=== PATIENT | male | born 1960 | race Caucasian/White ===

== ENCOUNTER 2016-11-03 19:19 | Emergency (ER) | payer OTHER | END 2016-11-03 21:11 | disposition home or self-care (01) | DX: S22.32XA Fracture of one rib, left side, initial encounter for closed fracture (principal); W01.198A Fall on same level from slipping, tripping and stumbling with subsequent striking against other object, initial encounter ==

== ENCOUNTER 2016-11-05 02:53 | Outpatient (CLI) | payer OTHER | END 2016-11-05 02:54 | disposition home or self-care (01) | DX: F41.9 Anxiety disorder, unspecified (principal) ==

== ENCOUNTER 2016-11-05 09:57 | Outpatient (CLI) | payer OTHER | END 2016-11-05 09:58 | disposition critical access hospital (66) | DX: F41.0 Panic disorder [episodic paroxysmal anxiety] (principal) | CPT/HCPCS: A0425; A0429 ==

== ENCOUNTER 2016-11-05 10:14 | Emergency (ER) | payer OTHER ==
--- NOTE | 2016-11-05 12:48 | ED Physician Documentation ---
History of Present Illness - Stated complaint Stated Complaint: ANXIETY - Chief complaint Chief Complaint: MHE - History obtained from History obtained from: Patient, EMS - History of Present Illness Timing: Today - Additonal information Additional information: 56 y/o male fell about one week ago and broke a rib. He was drinking at the time and he has since stopped. He is one week out from his last drink. He took some left over vicoden for the pain and he developed hallucinations that he attributed to the medication until it was pointed out that this could happen from alcohol withdrawal and then the patient had the realization. He finally began to eat this morning and had a good hug from his before she left for work and he was relieved and then he began to have a panic attack. He called the ambulance for anxiety. Review of Systems Constitutional: denies: Fever, Chills Eyes: denies: Decreased vision Ears: reports: Loss of hearing. denies: Ear pain Nose: denies: Rhinorrhea / runny nose, Congestion Throat: denies: Sore throat Cardiac: reports: Chest pain / pressure Respiratory: denies: Dyspnea, Cough GI: denies: Vomiting Musculoskeletal: denies: Neck pain, Back pain Neurologic: reports: Other (shakes). denies: Generalized weakness, Focal weakness, Numbness Psychiatric: reports: Hallucinations PD PAST MEDICAL HISTORY - Present Medications Home Medications: Ambulatory Orders Medication Instructions Recorded Confirmed Hydrocodone/Acetaminophen [Vicodin 1 tab PO Q6HR 11/03/16 11/05/16 5-300 mg Tablet] Lorazepam [Ativan] 1 - 2 mg PO Q6HR PRN #20 tablet 11/05/16 - Allergies Allergies/Adverse Reactions: Allergies Allergy/AdvReac Type Severity Reaction Status Date / Time cat dander Allergy Itching Verified 11/03/16 19:29 Penicillins Allergy Rash Verified 11/03/16 19:29 - Social History Does the pt smoke?: Yes Smoking Status: Current every day smoker Does the pt drink ETOH?: Yes ETOH Use: Beer Does the pt have substance abuse?: No PD ED PE NORMAL - Vitals Vital signs reviewed: Yes (tachy and hypertensive ) - General General: Alert and oriented X 3, Well developed/nourished, Other (The patient does have the shakes. ) - HEENT HEENT: Atraumatic, PERRL, EOMI - Neck Neck: Supple, no meningeal sign - Cardiac Cardiac: RRR, No murmur - Respiratory Respiratory: No respiratory distress, Clear bilaterally - Abdomen Abdomen: Soft, Non tender - Back Back: No CVA TTP, No spinal TTP - Derm Derm: Normal color, Warm and dry, No rash - Extremities Extremities: No deformity, No edema - Neuro Neuro: Alert and oriented X 3, No motor deficit, No sensory deficit, Normal speech - Psych Psych: Normal mood, Normal affect Results - Vitals Vitals: Vital Signs - 24 hr 11/05/16 10:15 Temperature 37.3 C Heart Rate 123 H Respiratory 22 Rate Blood Pressure 190/99 H O2 Saturation 95 Oxygen O2 Source Room air PD MEDICAL DECISION MAKING - ED course Complexity details: considered differential, d/w patient ED course: 56 y/o male with acute alcohol withdrawals symptoms is offered IV fluids and refuses as he feels he will be able to hydrate orally. Departure - Departure Disposition: 01 Home, Self Care Clinical Impression: Alcohol withdrawal Qualifiers: Complication of substance-induced condition: with unspecified complication Qualified Code(s): F10.239 - Alcohol dependence with withdrawal, unspecified Condition: Stable Instructions: ED Withdrawal Alcohol Follow-Up: [facility] Moreno [Provider Group] Prescriptions: Lorazepam [Ativan] 1 - 2 mg PO Q6HR PRN #20 tablet PRN Reason: withdrawal symptoms
[2016-11-05] MEDS ORDERED: DEXAMETHASONE 10 MG/ML VIAL PO STA (12:56)
[2016-11-05] MEDS ORDERED: DEXAMETHASONE 10 MG/ML VIAL ONE (12:58)
[2016-11-05] MEDS ORDERED: CHERRY SYRUP 10 ML UDC PO ONE (12:58)
[2016-11-05 13:00] VITALS: BP 174/86
== END 2016-11-05 13:03 | disposition home or self-care (01) ==
LOC: ED 10:14
DX: F10.239 Alcohol dependence with withdrawal, unspecified (principal); F17.200 Nicotine dependence, unspecified, uncomplicated
CPT/HCPCS: 99283; A9270

== ENCOUNTER 2016-11-07 08:09 | Outpatient (CLI) | payer OTHER | END 2016-11-07 08:10 | disposition critical access hospital (66) | LOC: EMS 08:09 | PROVIDERS: ATTEND Surgery | DX: R41.82 Altered mental status, unspecified (principal) | CPT/HCPCS: A0425; A0429 ==

== ENCOUNTER 2016-11-07 08:48 | Inpatient (IN) | payer OTHER ==
--- NOTE | 2016-11-07 09:12 | ED Physician Documentation ---
PD HPI MHE - Stated complaint Stated Complaint: MHE - Chief complaint Chief Complaint: MHE - History obtained from History obtained from: Patient, Family (spouse) - History of Present Illness Primary symptom: Psychosis, Anxiety, Other (shaky and nauseated) Timing - onset: How many days ago (3-4) Contributing factors: Substance abuse - ETOH (had been drinking heavily/ regularly up to 8 days ago, per patient. Was having mild shakiness and nausea for a few days, then having increased anxiety, poor sleep, nausea (but still able to hydrate), and paranoia, shakiness the past 3-4 days worsening. Seen in ED 2 days ago with Rx for Ativan, but did not fill it. Was feeling better with Ativan in the ED. Continues with agitation, shakiness, and worsening paranoia about having detectors placed in his head, and small creatures putting things in his toes.) Similar symptoms before: Has not had sx before (has had sober periods in the past with mild withdrawal but no prior withdrawal psychosis, seizures, nor hospitalization.) Recently seen: Emergency Dept (2 days ago for similar but milder.) Review of Systems Constitutional: denies: Fever, Chills Nose: denies: Rhinorrhea / runny nose, Congestion Throat: denies: Sore throat Cardiac: denies: Chest pain / pressure, Palpitations Respiratory: denies: Dyspnea, Cough GI: reports: Nausea. denies: Abdominal Pain, Vomiting, Diarrhea, Bloody / black stool : denies: Dysuria, Frequency Skin: denies: Rash, Lesions Musculoskeletal: denies: Extremity swelling Neurologic: reports: Generalized weakness, Confused. denies: Focal weakness, Numbness, Seizure, Headache, Head injury Endocrine: denies: Weight loss Immunocompromised: denies: Immunocompromised PD PAST MEDICAL HISTORY - Past Medical History Cardiovascular: None Respiratory: None Neuro: None Endocrine/Autoimmune: None Psych: None - Allergies Allergies/Adverse Reactions: Allergies Allergy/AdvReac Type Severity Reaction Status Date / Time cat dander Allergy Itching Verified 11/07/16 08:52 Penicillins Allergy Rash Verified 11/07/16 08:52 - Social History Does the pt smoke?: Yes Smoking Status: Current every day smoker Does the pt drink ETOH?: Yes Does the pt have substance abuse?: No PD ED PE NORMAL - Vitals Vital signs reviewed: Yes - General General: Alert and oriented X 3, Well developed/nourished - HEENT HEENT: Atraumatic, PERRL, EOMI, Pharynx benign. No: Moist mucous membranes - Neck Neck: Supple, no meningeal sign, No adenopathy - Cardiac Cardiac: No: RRR (mild tachycardic; also hypertensive) - Respiratory Respiratory: Clear bilaterally - Abdomen Abdomen: Soft, Non tender, No organomegaly - Male Male : Deferred - Rectal Rectal: Deferred - Back Back: No CVA TTP - Derm Derm: Normal color, Warm and dry - Extremities Extremities: No edema, No calf tenderness / cord - Neuro Neuro: Alert and oriented X 3, No motor deficit, Normal speech - Psych Psych: No: Normal mood (anxious, very shaky in extremities with worsening on intention. He has fixed delusions of having "detectors placed in his head" and that creatures or such had "put things in my toes and burned them". I asked about listening to his chest and he asked me if I heard any machines or unusual sounds in the chest and he thinks there were things put in his chest. He denies hearing voices nor visual hallucinations per se. However he is asking for MRI to find the detectors in his head and if I can remove the things from his chest. Increasing shakiness while getting initial labs, despite IV Ativan. ) Results - Vitals Vitals: Vital Signs - 24 hr 11/07/16 11/07/16 11/07/16 08:48 11:19 13:36 Temperature 37.4 C 36.6 C Heart Rate 94 80 Respiratory 18 18 Rate Blood Pressure 187/88 H 137/76 H O2 Saturation 100 96 98 Oxygen O2 Source Room air - Labs Labs: Laboratory Tests 11/07/16 11/07/16 11/07/16 09:55 09:55 11:30 WBC 7.6 RBC 3.99 L Hgb 13.7 L Hct 38.5 L MCV 96.5 H MCH 34.3 H MCHC 35.5 RDW 14.0 Plt Count 208 MPV 7.9 Neut # 4.2 Lymph # 2.0 [place] # 1.2 H Eos # 0.1 Baso # 0.1 Absolute Nucleated RBC 0.00 Nucleated RBCs 0.0 Sodium 136 Potassium 3.3 L Chloride 101 Carbon Dioxide 24 Anion Gap 11.0 BUN 11 Creatinine 0.8 Estimated GFR (MDRD) 100 Glucose 104 H Calcium 9.3 Magnesium 1.9 Total Bilirubin 0.8 AST 36 ALT 32 Alkaline Phosphatase 62 Total Protein 7.8 Albumin 4.5 Globulin 3.3 Albumin/Globulin Ratio 1.4 Lipase 45 Urine Opiates Screen NEGATIVE Ur Oxycodone Screen NEGATIVE Urine Methadone Screen NEGATIVE Ur Propoxyphene Screen NEGATIVE Ur Barbiturates Screen NEGATIVE Ur Tricyclics Screen NEGATIVE Ur Phencyclidine Scrn NEGATIVE Ur Amphetamine Screen NEGATIVE U Methamphetamines Scrn NEGATIVE U Benzodiazepines Scrn NEGATIVE Urine Cocaine Screen NEGATIVE U Cannabinoids Screen NEGATIVE Ethyl Alcohol < 5.0 - Rads (name of study) head CT Radiology: Prelim report reviewed (no acute process) PD MEDICAL DECISION MAKING - ED course Complexity details: re-evaluated patient (He has withdrawal with shakiness, nausea, hypertension, and some confusion, and also clear delusions. This seems to be complicated withdrawal. Not much improved with IV fluids and Ativan. Given dose Zyprexa as well. Continues with shakiness and delusions, and took few more doses of Ativan for improvement, though mainly it was sedation and not really clearing of the delusions. Much less shaky for now. However, I do not see his being treatable with PO medications at this time. Will have SW look at detox facility, though may be too sick for that and would require hospitalization for initial treatment. ), considered differential, d/w patient Departure - Departure Clinical Impression: Alcohol withdrawal delirium, acute, mixed level of activity, Paranoia Condition: Stable Record reviewed to determine appropriate education?: Yes
[2016-11-07] MEDS ORDERED: LORazepam 2 MG/ML SYRINGE IVP STA ×5 (09:44→12:32)
[2016-11-07] MEDS ORDERED: OLANZapine ODT 5 MG TABLET TL ONE ×2 (09:45→09:48)
[2016-11-07] MEDS ORDERED: LORazepam 2 MG/ML SYRINGE ONE ×5 (09:47→12:33)
[2016-11-07 10:14] LABS: BASOPHILS # (AUTO) 0.1 10^3/uL (0.0-0.1); BASOPHILS % (AUTO) 1.1 %; EOSINOPHILS # (AUTO) 0.1 10^3/uL (0.0-0.7); EOSINOPHILS % (AUTO) 1.7 %; HCT - HEMATOCRIT 38.5 % (42.0-52.0); HGB - HEMOGLOBIN 13.7 g/dL (14.0-18.0); MEAN CORPUSCULAR HEMOGLOBIN 34.3 pg (27.0-31.0); MEAN CORPUSCULAR HGB CONC 35.5 g/dL (32.0-36.0); MEAN CORPUSCULAR VOLUME 96.5 fL (80.0-94.0); MEAN PLATELET VOLUME 7.9 fL (7.4-11.4); MONOCYTES # (AUTO) 1.2 10^3/uL (0.0-1.0); MONOCYTES % (AUTO) 15.3 %; NEUTROPHILS # (AUTO) 4.2 10^3/uL (1.5-6.6); NEUTROPHILS % (AUTO) 55.9 %; RED BLOOD COUNT 3.99 10^6/uL (4.70-6.10); UNCORRECTED WHITE BLOOD COUNT 7.6 x10^3/uL; WHITE BLOOD COUNT 7.6 x10^3/uL (4.8-10.8)
[2016-11-07 10:18] LABS: ALBUMIN/GLOBULIN RATIO 1.4 (1.0-2.2); BILIRUBIN,TOTAL 0.8 mg/dL (0.2-1.0); BUN - BLOOD UREA NITROGEN 11 mg/dL (6-20); CALCIUM 9.3 mg/dL (8.5-10.3); CARBON DIOXIDE - CO2 24 mmol/L (21-32); CHLORIDE 101 mmol/L (101-111); CREATININE 0.8 mg/dL (0.6-1.2); GFR - MDRD 100 (>89); GLUCOSE 104 mg/dL (70-100); LIPASE 45 U/L (22-51); MAGNESIUM 1.9 mg/dL (1.7-2.8); POTASSIUM 3.3 mmol/L (3.5-5.0); SODIUM 136 mmol/L (135-145); TOTAL PROTEIN 7.8 g/dL (6.7-8.2)
[2016-11-07] MEDS ORDERED: KETOROLAC 30 MG/ML VIAL ONE (10:42)
[2016-11-07] MEDS ORDERED: DOCUSATE SODIUM 100 MG CAPSULE PO ONE (10:42)
[2016-11-07] MEDS ORDERED: SODIUM CHLORIDE 0.9% 1,000 ML IV ONE (10:51)
[2016-11-07] MEDS ORDERED: MAGNESIUM SULFATE 2 GRAM 50 ML IV ONE ×2 (11:30→11:48)
--- NOTE | 2016-11-07 13:36 | CT Preliminary Report ---
Exam: CT Head W/O IMPRESSION: 1. Brain parenchyma within normal limits. No mass or hemorrhage. 2. Left frontal and to a lesser degree left ethmoid and maxillary chronic sinusitis. [facility] SITE ID: [id number]
[2016-11-07] MEDS ORDERED: diazePAM INJ 5 MG/ML SYRINGE IVP STA ×2 (13:37→17:46)
--- NOTE | 2016-11-07 13:39 | CT Report ---
EXAM: CT HEAD EXAM DATE: 11/07/2016 01:10 PM. CLINICAL HISTORY: Confusion and paranoia. COMPARISON: None. TECHNIQUE: Multiaxial CT images were obtained from the foramen magnum to the vertex. IV contrast: Non e. Reformats: Coronal. In accordance with CT protocol optimization, one or more of the following dose reduction techniques w ere utilized for this exam: automated exposure control, adjustment of mA and/or KV based on patient s ize, or use of iterative reconstructive technique. FINDINGS: Parenchyma: No intraparenchymal hemorrhage. No evidence of mass, midline shift, or CT findings of inf arction. Barnett-white differentiation is distinct. Extraaxial Spaces: Normal for age. No subdural or epidural collections identified. Ventricles: Normal in size and position. Sinuses: The left frontal sinus is nearly completely opacified. Some mucosal thickening also present in the left ethmoid air cells. Mild mucosal thickening about the inferior left maxillary sinus also p resent. Bones: No evidence of fracture or calvarial defect. Other: None. IMPRESSION: 1. Brain parenchyma within normal limits. No mass or hemorrhage. 2. Left frontal and to a lesser degree left ethmoid and maxillary chronic sinusitis. [facility] Referring Provider Line: [phone] SITE ID: [id number]
[2016-11-07] MEDS ORDERED: ALBUTEROL NEB 2.5 MG/3 ML INH PRN (17:27)
[2016-11-07] MEDS ORDERED: ONDANSETRON 4 MG/2 ML VIAL IVP PRN (17:27)
[2016-11-07] MEDS ORDERED: SODIUM CHLORIDE FLUSH 0.9% 10 ML SYRINGE IVP PRN (17:27)
[2016-11-07] MEDS ORDERED: diazePAM INJ 5 MG/ML SYRINGE ONE (17:49)
[2016-11-07] MEDS: LORazepam 2 MG/ML SYRINGE IVP PRN ×4 (18:52→20:50)
--- NOTE | 2016-11-07 19:06 | HISTORY & PHYSICAL EXAMINATION ---
Chief Complaint - Chief Complaint Chief Complaint: tremor and hallucinations History of Present Illness - Admitted From Admitted From:: [facility] room - History Obtained From Records Reviewed: minimal ER records are available History obtained from: and stepson,, with minimal history from patient Exam Limitations: active alcohol withdrawal - History of Present Illness HPI Comment/Other: this 56-year-old man has been using both alcohol and tobacco since his 20s, according to his . She reports that he drinks up to acase of beer per day.. He has stopped in the past for up to a week. Recently,, she asked him to cut down on his drinking, as they have company coming soon.sshe believes he stopped drinking completely 8 days ago..aabout 4 days ago, he fell and struck his rib cage on a desk, and fractured the left seventh rib.. He tried to take some old Vicodin, but had a bad reaction. She says he then tried over- the-counter ibuprofen and an [id number]-[id number] sleepy. He was quite confused the next day, so they stopped his medications. Since then, he has become progressively more confused. He seems to be hallucinating about people on a different plane who are trying to kill him,, and also about dangerous people and animals in their yard. ER evaluation is suggestive of active alcohol withdrawal. because he remained agitated and delusional in the emergency room, he could not be transferred to a psychiatric facility for rehabilitation. He is now admitted for management of active DTs, and is admitted to the ICU for close monitoring. He is very confused and is actively trying to pull out lines and climb out of bed. He represents a danger to himself, and perhaps others. the patient cannot really give an accurate history. his says he has not complained fever or chills, headaches or dizziness, and no eye or ear symptoms , sore throat.. He does have a chronic cough which is unchanged.. He is having some pain with deep breathing since he fell and broke his rib. He otherwise denies chest pain or palpitations. He has not reported abdominal pain, , nausea or vomiting, diarrhea or constipation. He does not report dysuria. She does note that he is ordinarily quite sedentary. he does not have a primary care pphysician,, and has probably not seen a doctor since he retired from the ,, about 20 years ago. Past medical history: Previous hypertension Alcohol abuse Tobacco abuse current medications: None. He did recently take ibuprofen, and heqw-osp-zhslszn sleep meds, and an old Vicodin, several days ago. Allergies: Penicillin, cats. Next Social history: The patient is retired from the [employer] He lives with his . He has a stepson in [place]. He drinks approximately one case of , and smokes about 2 packs of cigarettes per day, since the age of 14. He does not use drugs. Family history: His mother has COPD. His sister of leukemia. Other family history is unknown. History - Past Medical History Cardiovascular: reports: Hypertension Respiratory: reports: None Neuro: reports: None Endocrine/Autoimmune: reports: None GI: reports: None : reports: None HEENT: reports: Chronic vision loss, Chronic hearing loss Psych: reports: None Musculoskeletal: reports: None Derm: reports: None MRSA Hx?: No Meds/Allgy - Allergies Allergies/Adverse Reactions: Allergies Allergy/AdvReac Type Severity Reaction Status Date / Time cat dander Allergy Itching Verified 11/07/16 08:52 Penicillins Allergy Rash Verified 11/07/16 08:52 Exam - Vital Signs Reviewed Vital Signs: Yes Vital Signs: Vital Signs x48h Temp Pulse Resp BP Pulse Ox 11/07/16 18:28 108 H 20 151/118 H 96 11/07/16 18:17 37.2 C 106 H 26 H 142/88 H 96 on exam, he appears older than his stated age.. He is seen in the ICU, and has wrist restraints on. He is very fidgety. He repeatedly asks for a knife to cut his restraints. Head: Normocephalic, atraumatic. Ears: TMs are clear. Moderate cerumen is noted in the right ear canal. Eyes: PERRLA, EOMI, anicteric. Normal conjunctiva. Pharynx: Is clear. Teeth are in fair condition. Neck: Appears supple, without lymphadenopathy,, JVD, thyromegaly, bruits. cardiac exam:chest regular rate and rhythm, with normal S1 and S2,, without murmurs,, rubs, gallops. Lungs: Clear to auscultation, without rales, rhonchi, wheezes Abdomen: Soft and nontender, without obvious masses. No regarding or rebound.. Active bowel sounds. Extremities: Cyanosis,, clubbing, edema. Pulses intact. Neurologic: The patient is awake and alert,, but clearly confused. He could not stay the day, month,, year, or president . he did recall his 's name and how long they have been . he is trying to get out of restraints, but does not appear violent or especially agitated. Cranial nerves are grossly intact. Motor strength is intact and symmetric throughout. Cerebellar: Patient is quite tremulous. Prqznn-mn-pbsxiq exam could not be performed due to restraints. Conclusion/Plan - Lab Results Fish Bones: 11/07/16 09:55 11/07/16 09:55 Other Lab Results: urine tox screen: Is negative. Alcohol level is less than 5.0next Head CT: Shows normal brain parenchyma. He does have left frontal and left ethmoid and maxillary chronic sinusitis Issues/Core Measures - Anticipated LOS Anticipated Stay Length: 2 or more midnights - Issues Hospital Issues and Management Plan: #1.delirium tremens,, related to alcohol withdrawal. -Patient is actively hallucinating. He is hypertensive, and is certainly at risk for harming due to his confusion. He is at risk for seizures. He has been admitted to the ICU for close observation. Monitor ciwa scale,, when necessary Ativan. Telemetry. Soft wrist restraints,, regarding keeping lines in place and keeping him from falling out of bed. Social work consult. Consideration of inpatient rehabilitation. It was discussed with the patient's family that he may need further psychiatric evaluation, if his symptoms do not improve. -IV fluids, banana bag with vitamins, followup labs.. #2. CODE STATUS: full code. #3. DVT prophylaxis: Subcutaneous heparin. #4. History of hypertension. Untreated. -Monitor. Consider treatment after withdrawal is controlled. Add clonidine if needed. #5. Tobacco abuse. -Nicoderm. Tobacco cessation counseling. #6. Left seventh rib fracture. Pain meds when necessary. cchest wrap when necessary. #7. Hypokalemia. Replace. -Monitor magnesium also. #8. Anemia, macrocytic. Likely due to the effects of alcohol on his bone marrow. -Nutrition consult. this visit to took approximately 65 minutes,, to review records,, test results, interview the patient and his family,, examine him,, write orders
[2016-11-07] MEDS: D5.45NS W/20 MEQ KCL 1,000 ML IV SCH (19:51)
[2016-11-07] MEDS ORDERED: cloNIDine 0.1 MG TABLET PO PRN (19:52)
[2016-11-07] MEDS ORDERED: ACETAMINOPHEN 500 MG TABLET PO PRN (19:53)
[2016-11-07] MEDS ORDERED: POTASSIUM CHLORIDE INJ 40 MEQ in SODIUM CHLORIDE 0.9% 480 ML IV ONE (19:54)
[2016-11-07] MEDS: HEPARIN 5,000 UNIT/ML VIAL SUBQ SCH (20:32)
[2016-11-07] MEDS: SODIUM CHLORIDE FLUSH 0.9% 10 ML SYRINGE IVP SCH (22:10)
[2016-11-08] MEDS: LORazepam 2 MG/ML SYRINGE IVP PRN ×17 (03:20→17:53)
[2016-11-08 05:02] LABS: BASOPHILS % (AUTO) 0.8 %; EOSINOPHILS # (AUTO) 0.2 10^3/uL (0.0-0.7); EOSINOPHILS % (AUTO) 3.8 %; HCT - HEMATOCRIT 38.3 % (42.0-52.0); LYMPHOCYTES % (AUTO) 35.4 %; MEAN CORPUSCULAR HEMOGLOBIN 33.4 pg (27.0-31.0); MEAN CORPUSCULAR HGB CONC 33.9 g/dL (32.0-36.0); MEAN CORPUSCULAR VOLUME 98.7 fL (80.0-94.0); MEAN PLATELET VOLUME 7.9 fL (7.4-11.4); MONOCYTES # (AUTO) 0.8 10^3/uL (0.0-1.0); MONOCYTES % (AUTO) 13.6 %; NEUTROPHILS # (AUTO) 2.6 10^3/uL (1.5-6.6); NEUTROPHILS % (AUTO) 46.4 %; RED BLOOD COUNT 3.88 10^6/uL (4.70-6.10); RED CELL DISTRIBUTION WIDTH 14.2 % (12.0-15.0); UNCORRECTED WHITE BLOOD COUNT 5.7 x10^3/uL; WHITE BLOOD COUNT 5.7 x10^3/uL (4.8-10.8)
[2016-11-08 05:15] LABS: INR 1.1 (0.8-1.2); PT - PROTHROMBIN TIME 12.7 secs (9.9-12.6)
[2016-11-08 05:16] LABS: ALBUMIN/GLOBULIN RATIO 1.2 (1.0-2.2); BILIRUBIN,TOTAL 0.8 mg/dL (0.2-1.0); CALCIUM 8.4 mg/dL (8.5-10.3); CREATININE 0.6 mg/dL (0.6-1.2); MAGNESIUM 2.2 mg/dL (1.7-2.8); PHOSPHORUS 3.3 mg/dL (2.5-4.6); POTASSIUM 3.6 mmol/L (3.5-5.0); TOTAL PROTEIN 6.2 g/dL (6.7-8.2)
[2016-11-08] MEDS: D5.45NS W/20 MEQ KCL 1,000 ML IV SCH ×2 (05:46→20:36)
[2016-11-08] MEDS: PANTOPRAZOLE 40 MG VIAL IVP SCH (06:18)
[2016-11-08] MEDS: SODIUM CHLORIDE FLUSH 0.9% 10 ML SYRINGE IVP SCH ×3 (06:18→22:08)
[2016-11-08] MEDS: NICOTINE 14 MG PATCH TOP SCH (09:19)
[2016-11-08] MEDS: HEPARIN 5,000 UNIT/ML VIAL SUBQ SCH ×2 (09:51→20:36)
[2016-11-08] MEDS: MULTIVITAMIN 10 ML, THIAMINE INJ 100 MG, FOLIC ACID INJ 1 MG in SODIUM CHLORIDE 0.9% 1,... IV SCH (10:15)
[2016-11-08] MEDS: PRENATAL VITAMIN TABLET PO SCH (10:16)
[2016-11-08] MEDS: THIAMINE 100 MG TABLET PO SCH (10:16)
--- NOTE | 2016-11-08 11:57 | PROVIDER PROGRESS NOTE ---
Assessment/Plan - Problem List (1) Alcohol withdrawal delirium, acute, mixed level of activity Assessment/Plan: Sherman is still very confused and very tremulous. He is afebrile and not tachycardic He needs continued close monitoring and meds. Will see how he is doing and decide if improved enough to go to MED Surg - Current Meds Current Meds: Current Medications Generic Name Dose Route Start Last Admin Trade Name Freq PRN Reason Stop Dose Admin Heparin Sodium (Porcine) 5,000 unit 11/07/16 21:00 11/08/16 09:51 SUBQ 5,000 unit BID JAVIER Administration Potassium Chloride/Dextrose/Sod Cl 1,000 mls @ 100 mls/hr 11/07/16 18:00 05:46 D5.45ns W/20 Meq Kcl IV 100 mls/hr .Q10H JAVIER Administration Multivitamins 10 ml/ Thiamine 1,011.2 mls @ 100 mls/hr 11/08/16 09:00 11/08/16 10:15 HCl 100 mg/ Folic Acid 1 mg/ IV 100 mls/hr Sodium Chloride DAILY JAVIER Administration Lorazepam 2 mg 11/07/16 17:36 11/08/16 11:33 Ativan Inj IVP 2 mg Q30M PRN Administration CIWA>8 Protocol Nicotine 1 patch 11/08/16 09:00 11/08/16 09:19 Nicoderm TOP 1 patch DAILY JAVIER Administration Pantoprazole Sodium 40 mg 11/08/16 07:00 11/08/16 06:18 Protonix IVP 40 mg QDAC JAVIER Administration Multivit/Folic Acid/Iron 1 tab 11/08/16 08:00 11/08/16 10:16 Trinatal Rx 1 PO Not Given DAILYWM JAVIER Sodium Chloride 10 ml 11/07/16 22:00 11/08/16 06:18 Normal Saline Flush 0.9% IVP 10 ml Q8HR JAVIER Administration Thiamine HCl 100 mg 11/08/16 09:00 11/08/16 10:16 Vitamin B-1 PO Not Given DAILY JAVIER - Lab Result Fish Bone Diagrams: 11/08/16 04:45 11/08/16 04:45 Subjective - Subjective Patient Reports: Other (He appears anxious and sullen not answering simple questions and appears to be glaring.) Objective Vital Signs: Vital Signs - 24 hr 11/07/16 11/07/16 11/07/16 18:17 18:28 19:00 Temperature 37.2 C Heart Rate Heart Rate [ 106 H 108 H 99 Monitoring electrodes] Respiratory 26 H 20 21 Rate Blood Pressure 142/88 H 151/118 H 122/103 H [Right Brachial artery] O2 Saturation 96 96 99 11/07/16 11/07/16 11/07/16 19:43 21:00 22:00 Temperature 36.5 C Heart Rate Heart Rate [ 112 H 89 64 Monitoring electrodes] Respiratory 19 15 18 Rate Blood Pressure 143/57 H 134/70 H 115/56 L [Right Brachial artery] O2 Saturation 96 99 11/07/16 11/08/16 11/08/16 23:00 00:00 01:00 Temperature 36.8 C Heart Rate Heart Rate [ 75 70 67 Monitoring electrodes] Respiratory 17 13 14 Rate Blood Pressure 148/64 H 130/74 117/73 [Right Brachial artery] O2 Saturation 95 94 93 11/08/16 11/08/16 11/08/16 02:00 03:00 04:00 Temperature 36.9 C Heart Rate Heart Rate [ 65 64 69 Monitoring electrodes] Respiratory 14 15 16 Rate Blood Pressure 129/75 114/69 124/65 [Right Brachial artery] O2 Saturation 93 99 93 11/08/16 11/08/16 11/08/16 05:00 05:50 06:57 Temperature Heart Rate Heart Rate [ 117 H 78 73 Monitoring electrodes] Respiratory 23 16 14 Rate Blood Pressure 143/90 H 157/79 H 142/68 H [Right Brachial artery] O2 Saturation 93 96 11/08/16 11/08/16 11/08/16 07:49 08:46 09:35 Temperature 36.4 C L Heart Rate Heart Rate [ 63 61 102 H Monitoring electrodes] Respiratory 13 20 21 Rate Blood Pressure 142/77 H 124/86 H 124/96 H [Right Brachial artery] O2 Saturation 92 98 97 11/08/16 11/08/16 10:45 11:00 Temperature 36.4 C L Heart Rate 85 Heart Rate [ 73 Monitoring electrodes] Respiratory 21 16 Rate Blood Pressure 163/83 H [Right Brachial artery] O2 Saturation 95 Oxygen O2 Source Room air I&O (Last 24 Hrs): Intake and Output Totals x24h 11/06/16 11/07/16 11/08/16 23:59 23:59 23:59 Intake Total 473 1490 Output Total 0 450 Balance 473 1040 General: Alert HEENT: PERRLA, EOMI Neck: No JVD, No thyromegaly Neuro: Alert, Disoriented, Non Focal Cardiovascular: Regular rate, No murmurs Respiratory: No respiratory distress, Breath sounds nml Abdomen: Normal bowel sounds, Soft Extremities: No cyanosis, No edema Skin: No rashes, No breakdown - Results Results: Laboratory Results WBC 5.7 x10^3/uL (4.8-10.8) 11/08/16 04:45 RBC 3.88 10^6/uL (4.70-6.10) L 11/08/16 04:45 Hgb 13.0 g/dL (14.0-18.0) L 11/08/16 04:45 Hct 38.3 % (42.0-52.0) L 11/08/16 04:45 MCV 98.7 fL (80.0-94.0) H 11/08/16 04:45 MCH 33.4 pg (27.0-31.0) H 11/08/16 04:45 MCHC 33.9 g/dL (32.0-36.0) 11/08/16 04:45 RDW 14.2 % (12.0-15.0) 11/08/16 04:45 Plt Count 212 10^3/uL (130-450) 11/08/16 04:45 MPV 7.9 fL (7.4-11.4) 11/08/16 04:45 Neut # 2.6 10^3/uL (1.5-6.6) 11/08/16 04:45 Lymph # 2.0 10^3/uL (1.5-3.5) 11/08/16 04:45 [place] # 0.8 10^3/uL (0.0-1.0) 11/08/16 04:45 Eos # 0.2 10^3/uL (0.0-0.7) 11/08/16 04:45 Baso # 0.0 10^3/uL (0.0-0.1) 11/08/16 04:45 Absolute Nucleated RBC 0.00 x10^3/uL 11/08/16 04:45 Nucleated RBCs 0.0 /100WBC 11/08/16 04:45 PT 12.7 secs (9.9-12.6) H 11/08/16 04:45 INR 1.1 (0.8-1.2) 11/08/16 04:45 Sodium 137 mmol/L (135-145) 11/08/16 04:45 Potassium 3.6 mmol/L (3.5-5.0) 11/08/16 04:45 Chloride 105 mmol/L (101-111) 11/08/16 04:45 Carbon Dioxide 24 mmol/L (21-32) 11/08/16 04:45 Anion Gap 8.0 (6-13) 11/08/16 04:45 BUN 7 mg/dL (6-20) 11/08/16 04:45 Creatinine 0.6 mg/dL (0.6-1.2) 11/08/16 04:45 Estimated GFR (MDRD) 140 (>89) 11/08/16 04:45 Glucose 91 mg/dL (70-100) 11/08/16 04:45 Calcium 8.4 mg/dL (8.5-10.3) L 11/08/16 04:45 Phosphorus 3.3 mg/dL (2.5-4.6) 11/08/16 04:45 Magnesium 2.2 mg/dL (1.7-2.8) 11/08/16 04:45 Total Bilirubin 0.8 mg/dL (0.2-1.0) 11/08/16 04:45 AST 28 IU/L (10-42) 11/08/16 04:45 ALT 24 IU/L (10-60) 11/08/16 04:45 Alkaline Phosphatase 47 IU/L (42-121) 11/08/16 04:45 Total Protein 6.2 g/dL (6.7-8.2) L 11/08/16 04:45 Albumin 3.4 g/dL (3.2-5.5) 11/08/16 04:45 Globulin 2.8 g/dL (2.1-4.2) 11/08/16 04:45 Albumin/Globulin Ratio 1.2 (1.0-2.2) 11/08/16 04:45 Lipase 45 U/L (22-51) 11/07/16 09:55 Urine Opiates Screen NEGATIVE (NEGATIVE) 11/07/16 11:30 Ur Oxycodone Screen NEGATIVE (NEGATIVE) 11/07/16 11:30 Urine Methadone Screen NEGATIVE (NEGATIVE) 11/07/16 11:30 Ur Propoxyphene Screen NEGATIVE (NEGATIVE) 11/07/16 11:30 Ur Barbiturates Screen NEGATIVE (NEGATIVE) 11/07/16 11:30 Ur Tricyclics Screen NEGATIVE (NEGATIVE) 11/07/16 11:30 Ur Phencyclidine Scrn NEGATIVE (NEGATIVE) 11/07/16 11:30 Ur Amphetamine Screen NEGATIVE (NEGATIVE) 11/07/16 11:30 U Methamphetamines Scrn NEGATIVE (NEGATIVE) 11/07/16 11:30 U Benzodiazepines Scrn NEGATIVE (NEGATIVE) 11/07/16 11:30 Urine Cocaine Screen NEGATIVE (NEGATIVE) 11/07/16 11:30 U Cannabinoids Screen NEGATIVE (NEGATIVE) 11/07/16 11:30 Ethyl Alcohol < 5.0 mg/dL 11/07/16 09:55
[2016-11-08] MEDS: LORazepam 100MG/100ML 100 ML IV SCH ×2 (15:29→22:53)
[2016-11-08] MEDS ORDERED: LORazepam 2 MG/ML SYRINGE IVP ONE (17:15)
[2016-11-08] MEDS ORDERED: LORazepam 2 MG/ML SYRINGE IVP PRN (18:00)
[2016-11-09] MEDS: D5.45NS W/20 MEQ KCL 1,000 ML IV SCH ×2 (01:22→06:48)
[2016-11-09] MEDS: LORazepam 100MG/100ML 100 ML IV SCH ×4 (04:47→18:02)
[2016-11-09 05:26] LABS: BASOPHILS # (AUTO) 0.1 10^3/uL (0.0-0.1); BASOPHILS % (AUTO) 1.1 %; EOSINOPHILS # (AUTO) 0.2 10^3/uL (0.0-0.7); EOSINOPHILS % (AUTO) 3.4 %; HGB - HEMOGLOBIN 12.5 g/dL (14.0-18.0); LYMPHOCYTES % (AUTO) 38.7 %; MEAN CORPUSCULAR HEMOGLOBIN 33.1 pg (27.0-31.0); MEAN CORPUSCULAR HGB CONC 33.7 g/dL (32.0-36.0); MONOCYTES # (AUTO) 0.8 10^3/uL (0.0-1.0); MONOCYTES % (AUTO) 14.7 %; NEUTROPHILS # (AUTO) 2.2 10^3/uL (1.5-6.6); NEUTROPHILS % (AUTO) 42.1 %; NUCLEATED RED BLOOD CELLS AUTO 0.1 /100WBC; RED BLOOD COUNT 3.77 10^6/uL (4.70-6.10); UNCORRECTED WHITE BLOOD COUNT 5.3 x10^3/uL; WHITE BLOOD COUNT 5.3 x10^3/uL (4.8-10.8)
[2016-11-09] MEDS: SODIUM CHLORIDE FLUSH 0.9% 10 ML SYRINGE IVP SCH ×3 (06:25→22:00)
[2016-11-09] MEDS: PANTOPRAZOLE 40 MG VIAL IVP SCH (06:25)
[2016-11-09 06:34] LABS: ALBUMIN/GLOBULIN RATIO 1.5 (1.0-2.2); BILIRUBIN,TOTAL 0.8 mg/dL (0.2-1.0); BUN - BLOOD UREA NITROGEN < 5 mg/dL (6-20); CALCIUM 8.4 mg/dL (8.5-10.3); CARBON DIOXIDE - CO2 24 mmol/L (21-32); CHLORIDE 109 mmol/L (101-111); CREATININE 0.5 mg/dL (0.6-1.2); GFR - MDRD 173 (>89); GLUCOSE 117 mg/dL (70-100); POTASSIUM 3.4 mmol/L (3.5-5.0); SODIUM 139 mmol/L (135-145); TOTAL PROTEIN 5.9 g/dL (6.7-8.2)
[2016-11-09] MEDS ORDERED: POTASSIUM CHLORIDE 20 MEQ/15 ML UDC PO ONE (07:58)
[2016-11-09] MEDS: HEPARIN 5,000 UNIT/ML VIAL SUBQ SCH ×2 (08:27→21:29)
[2016-11-09] MEDS: NICOTINE 14 MG PATCH TOP SCH (08:27)
[2016-11-09] MEDS: THIAMINE 100 MG TABLET PO SCH (08:56)
[2016-11-09] MEDS: PRENATAL VITAMIN TABLET PO SCH (08:56)
[2016-11-09] MEDS: MULTIVITAMIN 10 ML, THIAMINE INJ 100 MG, FOLIC ACID INJ 1 MG in SODIUM CHLORIDE 0.9% 1,... IV SCH (08:56)
[2016-11-09] MEDS: POTASSIUM CHLOR 10 MEQ/100 ML 100 ML IV SCH ×4 (09:20→12:37)
[2016-11-10] MEDS: LORazepam 100MG/100ML 100 ML IV SCH ×3 (00:57→14:13)
[2016-11-10 05:14] LABS: BASOPHILS # (AUTO) 0.1 10^3/uL (0.0-0.1); BASOPHILS % (AUTO) 1.3 %; EOSINOPHILS # (AUTO) 0.1 10^3/uL (0.0-0.7); EOSINOPHILS % (AUTO) 2.6 %; HCT - HEMATOCRIT 39.1 % (42.0-52.0); HGB - HEMOGLOBIN 13.1 g/dL (14.0-18.0); LYMPHOCYTES # (AUTO) 1.5 10^3/uL (1.5-3.5); LYMPHOCYTES % (AUTO) 26.5 %; MEAN CORPUSCULAR HEMOGLOBIN 33.4 pg (27.0-31.0); MEAN CORPUSCULAR HGB CONC 33.5 g/dL (32.0-36.0); MEAN CORPUSCULAR VOLUME 99.7 fL (80.0-94.0); MEAN PLATELET VOLUME 8.2 fL (7.4-11.4); MONOCYTES # (AUTO) 0.8 10^3/uL (0.0-1.0); MONOCYTES % (AUTO) 14.3 %; NEUTROPHILS # (AUTO) 3.1 10^3/uL (1.5-6.6); NEUTROPHILS % (AUTO) 55.3 %; RED BLOOD COUNT 3.92 10^6/uL (4.70-6.10); UNCORRECTED WHITE BLOOD COUNT 5.7 x10^3/uL; WHITE BLOOD COUNT 5.7 x10^3/uL (4.8-10.8)
[2016-11-10 05:26] LABS: ALBUMIN/GLOBULIN RATIO 1.3 (1.0-2.2); BILIRUBIN,TOTAL 0.6 mg/dL (0.2-1.0); BUN - BLOOD UREA NITROGEN < 5 mg/dL (6-20); CALCIUM 8.7 mg/dL (8.5-10.3); CARBON DIOXIDE - CO2 24 mmol/L (21-32); CHLORIDE 110 mmol/L (101-111); CREATININE 0.5 mg/dL (0.6-1.2); GFR - MDRD 173 (>89); GLUCOSE 97 mg/dL (70-100); POTASSIUM 3.8 mmol/L (3.5-5.0); SODIUM 142 mmol/L (135-145)
[2016-11-10] MEDS: PANTOPRAZOLE 40 MG VIAL IVP SCH (06:53)
[2016-11-10] MEDS: D5.45NS W/20 MEQ KCL 1,000 ML IV SCH ×4 (06:53→20:52)
[2016-11-10] MEDS: SODIUM CHLORIDE FLUSH 0.9% 10 ML SYRINGE IVP SCH ×3 (06:55→21:30)
[2016-11-10] MEDS: NICOTINE 14 MG PATCH TOP SCH (08:46)
[2016-11-10] MEDS: HEPARIN 5,000 UNIT/ML VIAL SUBQ SCH ×2 (08:47→20:54)
[2016-11-10] MEDS: PRENATAL VITAMIN TABLET PO SCH (08:55)
[2016-11-10] MEDS: THIAMINE 100 MG TABLET PO SCH (08:56)
[2016-11-10] MEDS: MULTIVITAMIN 10 ML, THIAMINE INJ 100 MG, FOLIC ACID INJ 1 MG in SODIUM CHLORIDE 0.9% 1,... IV SCH (09:35)
--- NOTE | 2016-11-10 11:08 | PROVIDER PROGRESS NOTE ---
Assessment/Plan - Problem List (1) Alcohol withdrawal delirium, acute, mixed level of activity Assessment/Plan: Sarath is able to be awakened and have a short conversation today. He is still very aggitated and uncontrollable without the ativan drip even at a lower dose He is taking some oral and has no swallowing problems. Will advance diet. Lab is essentially nml. - Current Meds Current Meds: Current Medications Generic Name Dose Route Start Last Admin Trade Name Freq PRN Reason Stop Dose Admin Heparin Sodium (Porcine) 5,000 unit 11/07/16 21:00 11/10/16 08:47 SUBQ 5,000 unit BID JAVIER Administration Potassium Chloride/Dextrose/Sod Cl 1,000 mls @ 100 mls/hr 11/07/16 18:00 06:54 D5.45ns W/20 Meq Kcl IV 100 mls/hr .Q10H JAVIER Administration Multivitamins 10 ml/ Thiamine 1,011.2 mls @ 100 mls/hr 11/08/16 09:00 11/10/16 09:35 HCl 100 mg/ Folic Acid 1 mg/ IV 100 mls/hr Sodium Chloride DAILY JAVIER Administration Lorazepam 100 mls @ 5 mls/hr 11/08/16 15:00 11/10/16 09:04 Ativan IV 15 mg/hr .Q20H JAVIER Titration Protocol 5 MG/HR Lorazepam 2 mg 11/07/16 17:36 11/08/16 17:53 Ativan Inj IVP 1 mg Q30M PRN Administration CIWA>8 Protocol Lorazepam 1 - 2 mg 11/08/16 18:00 11/08/16 18:44 Ativan Inj IVP 1 mg Q30M PRN Administration Lorazepam drip protocol Protocol Nicotine 1 patch 11/08/16 09:00 11/10/16 08:46 Nicoderm TOP 1 patch DAILY JAVIER Administration Pantoprazole Sodium 40 mg 11/08/16 07:00 11/10/16 06:53 Protonix IVP 40 mg QDAC JAVIER Administration Multivit/Folic Acid/Iron 1 tab 11/08/16 08:00 11/10/16 08:55 Trinatal Rx 1 PO Not Given DAILYWM JAVIER Sodium Chloride 10 ml 11/07/16 22:00 11/10/16 06:55 Normal Saline Flush 0.9% IVP 10 ml Q8HR JAVIER Administration Thiamine HCl 100 mg 11/08/16 09:00 11/10/16 08:56 Vitamin B-1 PO Not Given DAILY JAVIER - Lab Result Fish Bone Diagrams: 11/10/16 04:40 11/10/16 04:40 - Additional Planning My Orders: My Active Orders 11/10/16 Lunch DIET [Soft Mechanical Diet] [DIET] 11/11/16 05:00 CBC - COMP BLD CT W/AUTO DIFF [HEME] DAILYLAB COMPREHENSIVE METABOLIC PANEL [CHEM] DAILYLAB MG [MAGNESIUM] [CHEM] DAILYLAB 11/12/16 05:00 CBC - COMP BLD CT W/AUTO DIFF [HEME] DAILYLAB COMPREHENSIVE METABOLIC PANEL [CHEM] DAILYLAB MG [MAGNESIUM] [CHEM] DAILYLAB 11/13/16 05:00 CBC - COMP BLD CT W/AUTO DIFF [HEME] DAILYLAB COMPREHENSIVE METABOLIC PANEL [CHEM] DAILYLAB MG [MAGNESIUM] [CHEM] DAILYLAB 11/14/16 05:00 CBC - COMP BLD CT W/AUTO DIFF [HEME] DAILYLAB COMPREHENSIVE METABOLIC PANEL [CHEM] DAILYLAB Subjective - Subjective Patient Reports: Resting Comfortably Nursing Reports: Confused Objective Vital Signs: Vital Signs - 24 hr 11/09/16 11/09/16 11/09/16 12:00 12:56 14:00 Temperature 36.6 C Heart Rate [ 80 67 76 Monitoring electrodes] Respiratory 21 15 22 Rate Blood Pressure 155/78 H 130/78 [Right Brachial artery] O2 Saturation 95 94 94 11/09/16 11/09/16 11/09/16 14:49 16:00 17:00 Temperature 36.6 C Heart Rate [ 75 61 60 Monitoring electrodes] Respiratory 20 14 14 Rate Blood Pressure 123/82 H 126/72 126/73 [Right Brachial artery] O2 Saturation 94 95 98 11/09/16 11/09/16 11/09/16 18:00 19:00 20:00 Temperature 36.8 C Heart Rate [ 96 79 63 Monitoring electrodes] Respiratory 14 23 13 Rate Blood Pressure 117/66 136/78 H 112/68 [Right Brachial artery] O2 Saturation 96 92 96 11/09/16 11/09/16 11/09/16 21:00 22:00 23:00 Temperature Heart Rate [ 62 82 77 Monitoring electrodes] Respiratory 17 19 17 Rate Blood Pressure 130/59 L 89/22 L 134/75 H [Right Brachial artery] O2 Saturation 98 95 96 11/10/16 11/10/16 11/10/16 00:00 01:00 02:00 Temperature 36.8 C Heart Rate [ 62 58 L 62 Monitoring electrodes] Respiratory 13 11 L 14 Rate Blood Pressure 129/68 131/77 H 127/77 [Right Brachial artery] O2 Saturation 95 99 97 11/10/16 11/10/16 11/10/16 03:00 04:00 05:00 Temperature 36.8 C Heart Rate [ 60 60 63 Monitoring electrodes] Respiratory 14 13 13 Rate Blood Pressure 132/69 H 124/79 106/75 [Right Brachial artery] O2 Saturation 97 97 97 11/10/16 11/10/16 11/10/16 06:00 06:56 07:42 Temperature 37.0 C Heart Rate [ 62 60 68 Monitoring electrodes] Respiratory 14 15 16 Rate Blood Pressure 139/98 H 130/79 136/76 H [Right Brachial artery] O2 Saturation 97 99 98 11/10/16 11/10/16 11/10/16 08:41 09:57 11:00 Temperature 36.5 C 36.3 C L Heart Rate [ 72 67 69 Monitoring electrodes] Respiratory 14 11 L 15 Rate Blood Pressure 135/80 H 138/76 H 138/76 H [Right Brachial artery] O2 Saturation 95 95 95 Oxygen O2 Source Room air I&O (Last 24 Hrs): Intake and Output Totals x24h 11/08/16 11/09/16 11/10/16 23:59 23:59 23:59 Intake Total 2896 3532 1497 Output Total 450 660 500 Balance 2446 2872 997 General: Alert, Cooperative HEENT: PERRLA, EOMI Neck: No JVD, No thyromegaly Lymphatic: no adenopathy Neuro: Alert, Disoriented, Speech Slurred Cardiovascular: Regular rate, No murmurs Respiratory: No respiratory distress, Breath sounds nml Extremities: No cyanosis, No edema Skin: No rashes, No breakdown - Results Results: Laboratory Results WBC 5.7 x10^3/uL (4.8-10.8) 11/10/16 04:40 RBC 3.92 10^6/uL (4.70-6.10) L 11/10/16 04:40 Hgb 13.1 g/dL (14.0-18.0) L 11/10/16 04:40 Hct 39.1 % (42.0-52.0) L 11/10/16 04:40 MCV 99.7 fL (80.0-94.0) H 11/10/16 04:40 MCH 33.4 pg (27.0-31.0) H 11/10/16 04:40 MCHC 33.5 g/dL (32.0-36.0) 11/10/16 04:40 RDW 14.0 % (12.0-15.0) 11/10/16 04:40 Plt Count 240 10^3/uL (130-450) 11/10/16 04:40 MPV 8.2 fL (7.4-11.4) 11/10/16 04:40 Neut # 3.1 10^3/uL (1.5-6.6) 11/10/16 04:40 Lymph # 1.5 10^3/uL (1.5-3.5) 11/10/16 04:40 [place] # 0.8 10^3/uL (0.0-1.0) 11/10/16 04:40 Eos # 0.1 10^3/uL (0.0-0.7) 11/10/16 04:40 Baso # 0.1 10^3/uL (0.0-0.1) 11/10/16 04:40 Absolute Nucleated RBC 0.00 x10^3/uL 11/10/16 04:40 Nucleated RBCs 0.0 /100WBC 11/10/16 04:40 PT 12.7 secs (9.9-12.6) H 11/08/16 04:45 INR 1.1 (0.8-1.2) 11/08/16 04:45 Sodium 142 mmol/L (135-145) 11/10/16 04:40 Potassium 3.8 mmol/L (3.5-5.0) 11/10/16 04:40 Chloride 110 mmol/L (101-111) 11/10/16 04:40 Carbon Dioxide 24 mmol/L (21-32) 11/10/16 04:40 Anion Gap 8.0 (6-13) 11/10/16 04:40 BUN < 5 mg/dL (6-20) L 11/10/16 04:40 Creatinine 0.5 mg/dL (0.6-1.2) L 11/10/16 04:40 Estimated GFR (MDRD) 173 (>89) 11/10/16 04:40 Glucose 97 mg/dL (70-100) 11/10/16 04:40 Calcium 8.7 mg/dL (8.5-10.3) 11/10/16 04:40 Phosphorus 3.3 mg/dL (2.5-4.6) 11/08/16 04:45 Magnesium 2.2 mg/dL (1.7-2.8) 11/08/16 04:45 Total Bilirubin 0.6 mg/dL (0.2-1.0) 11/10/16 04:40 AST 24 IU/L (10-42) 11/10/16 04:40 ALT 20 IU/L (10-60) 11/10/16 04:40 Alkaline Phosphatase 51 IU/L (42-121) 11/10/16 04:40 Total Protein 6.0 g/dL (6.7-8.2) L 11/10/16 04:40 Albumin 3.4 g/dL (3.2-5.5) 11/10/16 04:40 Globulin 2.6 g/dL (2.1-4.2) 11/10/16 04:40 Albumin/Globulin Ratio 1.3 (1.0-2.2) 11/10/16 04:40 Lipase 45 U/L (22-51) 11/07/16 09:55 Urine Opiates Screen NEGATIVE (NEGATIVE) 11/07/16 11:30 Ur Oxycodone Screen NEGATIVE (NEGATIVE) 11/07/16 11:30 Urine Methadone Screen NEGATIVE (NEGATIVE) 11/07/16 11:30 Ur Propoxyphene Screen NEGATIVE (NEGATIVE) 11/07/16 11:30 Ur Barbiturates Screen NEGATIVE (NEGATIVE) 11/07/16 11:30 Ur Tricyclics Screen NEGATIVE (NEGATIVE) 11/07/16 11:30 Ur Phencyclidine Scrn NEGATIVE (NEGATIVE) 11/07/16 11:30 Ur Amphetamine Screen NEGATIVE (NEGATIVE) 11/07/16 11:30 U Methamphetamines Scrn NEGATIVE (NEGATIVE) 11/07/16 11:30 U Benzodiazepines Scrn NEGATIVE (NEGATIVE) 11/07/16 11:30 Urine Cocaine Screen NEGATIVE (NEGATIVE) 11/07/16 11:30 U Cannabinoids Screen NEGATIVE (NEGATIVE) 11/07/16 11:30 Ethyl Alcohol < 5.0 mg/dL 11/07/16 09:55
[2016-11-10] MEDS: NYSTATIN 500000 UNITS/5 ML UDC PO SCH ×4 (14:06→20:55)
[2016-11-10] MEDS: LORazepam 2 MG/ML SYRINGE IVP PRN (23:31)
[2016-11-11] MEDS: LORazepam 100MG/100ML 100 ML IV SCH (01:09)
[2016-11-11 05:15] LABS: BASOPHILS % (AUTO) 0.9 %; EOSINOPHILS # (AUTO) 0.1 10^3/uL (0.0-0.7); EOSINOPHILS % (AUTO) 2.3 %; HCT - HEMATOCRIT 38.3 % (42.0-52.0); LYMPHOCYTES # (AUTO) 1.5 10^3/uL (1.5-3.5); LYMPHOCYTES % (AUTO) 27.1 %; MEAN CORPUSCULAR HEMOGLOBIN 33.6 pg (27.0-31.0); MEAN CORPUSCULAR HGB CONC 34.1 g/dL (32.0-36.0); MEAN CORPUSCULAR VOLUME 98.6 fL (80.0-94.0); MEAN PLATELET VOLUME 8.6 fL (7.4-11.4); MONOCYTES # (AUTO) 0.8 10^3/uL (0.0-1.0); MONOCYTES % (AUTO) 14.2 %; NEUTROPHILS # (AUTO) 3.1 10^3/uL (1.5-6.6); NEUTROPHILS % (AUTO) 55.5 %; RED BLOOD COUNT 3.88 10^6/uL (4.70-6.10); RED CELL DISTRIBUTION WIDTH 13.9 % (12.0-15.0); UNCORRECTED WHITE BLOOD COUNT 5.6 x10^3/uL; WHITE BLOOD COUNT 5.6 x10^3/uL (4.8-10.8)
[2016-11-11 05:25] LABS: ALBUMIN/GLOBULIN RATIO 1.2 (1.0-2.2); BILIRUBIN,TOTAL 0.6 mg/dL (0.2-1.0); BUN - BLOOD UREA NITROGEN < 5 mg/dL (6-20); CALCIUM 8.7 mg/dL (8.5-10.3); CARBON DIOXIDE - CO2 26 mmol/L (21-32); CHLORIDE 108 mmol/L (101-111); CREATININE 0.5 mg/dL (0.6-1.2); GFR - MDRD 173 (>89); GLUCOSE 99 mg/dL (70-100); MAGNESIUM 1.9 mg/dL (1.7-2.8); POTASSIUM 3.8 mmol/L (3.5-5.0); SODIUM 142 mmol/L (135-145); TOTAL PROTEIN 6.4 g/dL (6.7-8.2)
[2016-11-11] MEDS: SODIUM CHLORIDE FLUSH 0.9% 10 ML SYRINGE IVP SCH ×3 (06:10→21:04)
[2016-11-11] MEDS: PANTOPRAZOLE 40 MG VIAL IVP SCH (06:10)
[2016-11-11] MEDS: PRENATAL VITAMIN TABLET PO SCH (08:34)
[2016-11-11] MEDS: THIAMINE 100 MG TABLET PO SCH (08:35)
[2016-11-11] MEDS: NICOTINE 14 MG PATCH TOP SCH (08:38)
[2016-11-11] MEDS: HEPARIN 5,000 UNIT/ML VIAL SUBQ SCH ×2 (08:42→20:59)
[2016-11-11] MEDS: NYSTATIN 500000 UNITS/5 ML UDC PO SCH ×4 (08:48→21:03)
[2016-11-11] MEDS: MULTIVITAMIN 10 ML, THIAMINE INJ 100 MG, FOLIC ACID INJ 1 MG in SODIUM CHLORIDE 0.9% 1,... IV SCH (10:24)
--- NOTE | 2016-11-11 12:51 | PROVIDER PROGRESS NOTE ---
Assessment/Plan - Problem List (1) Alcohol withdrawal delirium, acute, mixed level of activity Assessment/Plan: Nacho is much improved this am. Ativan drip has been weaned to 2 mgs He is talking, answering questions appropriately. He is displaying concern for his and their future. Mentation is slow. - Current Meds Current Meds: Current Medications Generic Name Dose Route Start Last Admin Trade Name Freq PRN Reason Stop Dose Admin Heparin Sodium (Porcine) 5,000 unit 11/07/16 21:00 11/11/16 08:42 SUBQ 5,000 unit BID JAVIER Administration Multivitamins 10 ml/ Thiamine 1,011.2 mls @ 100 mls/hr 11/08/16 09:00 11/11/16 10:24 HCl 100 mg/ Folic Acid 1 mg/ IV Not Given Sodium Chloride DAILY JAVIER Lorazepam 2 mg 11/07/16 17:36 11/10/16 23:31 Ativan Inj IVP 2 mg Q30M PRN Administration CIWA>8 Protocol Lorazepam 1 - 2 mg 11/08/16 18:00 11/08/16 18:44 Ativan Inj IVP 1 mg Q30M PRN Administration Lorazepam drip protocol Protocol Nicotine 1 patch 11/08/16 09:00 11/11/16 08:38 Nicoderm TOP 1 patch DAILY JAVIER Administration Nystatin 5 ml 11/10/16 12:00 11/11/16 08:48 Mycostatin PO 5 ml QID JAVIER Administration Pantoprazole Sodium 40 mg 11/08/16 07:00 11/11/16 06:10 Protonix IVP 40 mg QDAC JAVIER Administration Multivit/Folic Acid/Iron 1 tab 11/08/16 08:00 11/11/16 08:34 Trinatal Rx 1 PO 1 tab DAILYWM JAVIER Administration Sodium Chloride 10 ml 11/07/16 17:27 11/11/16 10:00 Normal Saline Flush 0.9% IVP 10 ml PRN PRN Administration NEEDED PER PROVIDER ORDERS Sodium Chloride 10 ml 11/07/16 22:00 11/11/16 06:10 Normal Saline Flush 0.9% IVP 10 ml Q8HR JAVIER Administration Thiamine HCl 100 mg 11/08/16 09:00 11/11/16 08:35 Vitamin B-1 PO 100 mg DAILY JAVIER Administration - Lab Result Fish Bone Diagrams: 11/11/16 04:53 05/12/17 04:53 - Additional Planning My Orders: My Active Orders 11/10/16 12:00 Nystatin [Mycostatin] 5 ml PO QID 11/11/16 Evaluate and Treat OT [OT] Routine 11/11/16 Lunch DIET [Regular Diet] [DIET] 11/12/16 05:00 CBC - COMP BLD CT W/AUTO DIFF [HEME] DAILYLAB COMPREHENSIVE METABOLIC PANEL [CHEM] DAILYLAB MG [MAGNESIUM] [CHEM] DAILYLAB 11/13/16 05:00 CBC - COMP BLD CT W/AUTO DIFF [HEME] DAILYLAB COMPREHENSIVE METABOLIC PANEL [CHEM] DAILYLAB MG [MAGNESIUM] [CHEM] DAILYLAB 11/14/16 05:00 CBC - COMP BLD CT W/AUTO DIFF [HEME] DAILYLAB COMPREHENSIVE METABOLIC PANEL [CHEM] DAILYLAB Objective Vital Signs: Vital Signs - 24 hr 11/10/16 11/10/16 11/10/16 13:00 14:00 14:59 Temperature 36.3 C L Heart Rate [ 66 56 L 66 Monitoring electrodes] Respiratory 12 13 27 H Rate Blood Pressure 95/49 L 102/55 L 100/52 L [Right Brachial artery] O2 Saturation 93 98 96 11/10/16 11/10/16 11/10/16 16:00 17:00 18:00 Temperature 36.7 C Heart Rate [ 60 74 65 Monitoring electrodes] Respiratory 16 17 13 Rate Blood Pressure 106/64 126/74 133/89 H [Right Brachial artery] O2 Saturation 94 96 100 11/10/16 11/10/16 11/10/16 18:47 20:00 21:00 Temperature 36.8 C Heart Rate [ 88 65 65 Monitoring electrodes] Respiratory 13 16 16 Rate Blood Pressure 133/89 H 136/57 H 141/87 H [Right Brachial artery] O2 Saturation 99 97 97 11/10/16 11/10/16 11/11/16 22:00 23:00 00:00 Temperature 36.7 C Heart Rate [ 64 67 75 Monitoring electrodes] Respiratory 16 16 18 Rate Blood Pressure 135/58 H 107/63 150/83 H [Right Brachial artery] O2 Saturation 95 95 96 11/11/16 11/11/16 11/11/16 01:00 02:00 03:00 Temperature Heart Rate [ 60 60 60 Monitoring electrodes] Respiratory 14 14 14 Rate Blood Pressure 137/71 H 123/68 133/79 H [Right Brachial artery] O2 Saturation 97 97 97 11/11/16 11/11/16 11/11/16 04:00 05:00 06:00 Temperature 36.7 C Heart Rate [ 57 L 58 L 55 L Monitoring electrodes] Respiratory 16 14 16 Rate Blood Pressure 123/76 123/71 129/76 [Right Brachial artery] O2 Saturation 95 98 96 11/11/16 11/11/16 11/11/16 07:00 07:45 09:00 Temperature 36.0 C L Heart Rate [ 60 71 78 Monitoring electrodes] Respiratory 16 13 15 Rate Blood Pressure 115/61 134/83 H 120/73 [Right Brachial artery] O2 Saturation 94 93 98 11/11/16 11/11/16 11/11/16 10:00 11:00 11:53 Temperature Heart Rate [ 81 79 65 Monitoring electrodes] Respiratory 11 L 14 11 L Rate Blood Pressure 135/75 H 119/77 105/69 [Right Brachial artery] O2 Saturation 95 98 Oxygen O2 Source Room air I&O (Last 24 Hrs): Intake and Output Totals x24h 11/09/16 11/10/16 11/11/16 23:59 23:59 23:59 Intake Total 3532 3239 719 Output Total 401 564 5899 Balance 3876 1842 -655 General: Alert, Cooperative, No acute distress HEENT: PERRLA Neck: No JVD, No thyromegaly Neuro: Alert, Speech Slurred Cardiovascular: Regular rate, No murmurs Respiratory: Chest non-tender, No respiratory distress, Breath sounds nml Abdomen: Soft, No tenderness Extremities: No cyanosis, No edema Skin: No rashes, No breakdown - Results Results: Laboratory Results WBC 5.6 x10^3/uL (4.8-10.8) 11/11/16 04:53 RBC 3.88 10^6/uL (4.70-6.10) L 11/11/16 04:53 Hgb 13.0 g/dL (14.0-18.0) L 11/11/16 04:53 Hct 38.3 % (42.0-52.0) L 11/11/16 04:53 MCV 98.6 fL (80.0-94.0) H 11/11/16 04:53 MCH 33.6 pg (27.0-31.0) H 11/11/16 04:53 MCHC 34.1 g/dL (32.0-36.0) 11/11/16 04:53 RDW 13.9 % (12.0-15.0) 11/11/16 04:53 Plt Count 278 10^3/uL (130-450) 11/11/16 04:53 MPV 8.6 fL (7.4-11.4) 11/11/16 04:53 Neut # 3.1 10^3/uL (1.5-6.6) 11/11/16 04:53 Lymph # 1.5 10^3/uL (1.5-3.5) 11/11/16 04:53 [place] # 0.8 10^3/uL (0.0-1.0) 11/11/16 04:53 Eos # 0.1 10^3/uL (0.0-0.7) 11/11/16 04:53 Baso # 0.0 10^3/uL (0.0-0.1) 11/11/16 04:53 Absolute Nucleated RBC 0.00 x10^3/uL 11/11/16 04:53 Nucleated RBCs 0.0 /100WBC 11/11/16 04:53 PT 12.7 secs (9.9-12.6) H 11/08/16 04:45 INR 1.1 (0.8-1.2) 11/08/16 04:45 Sodium 142 mmol/L (135-145) 11/11/16 04:53 Potassium 3.8 mmol/L (3.5-5.0) 11/11/16 04:53 Chloride 108 mmol/L (101-111) 11/11/16 04:53 Carbon Dioxide 26 mmol/L (21-32) 11/11/16 04:53 Anion Gap 8.0 (6-13) 11/11/16 04:53 BUN < 5 mg/dL (6-20) L 11/11/16 04:53 Creatinine 0.5 mg/dL (0.6-1.2) L 11/11/16 04:53 Estimated GFR (MDRD) 173 (>89) 11/11/16 04:53 Glucose 99 mg/dL (70-100) 11/11/16 04:53 Calcium 8.7 mg/dL (8.5-10.3) 11/11/16 04:53 Phosphorus 3.8 mg/dL (2.5-4.6) 11/11/16 04:53 Magnesium 1.9 mg/dL (1.7-2.8) 11/11/16 04:53 Total Bilirubin 0.6 mg/dL (0.2-1.0) 11/11/16 04:53 AST 21 IU/L (10-42) 11/11/16 04:53 ALT 19 IU/L (10-60) 11/11/16 04:53 Alkaline Phosphatase 57 IU/L (42-121) 11/11/16 04:53 Total Protein 6.4 g/dL (6.7-8.2) L 11/11/16 04:53 Albumin 3.5 g/dL (3.2-5.5) 11/11/16 04:53 Globulin 2.9 g/dL (2.1-4.2) 11/11/16 04:53 Albumin/Globulin Ratio 1.2 (1.0-2.2) 11/11/16 04:53 Lipase 45 U/L (22-51) 11/07/16 09:55 Urine Opiates Screen NEGATIVE (NEGATIVE) 11/07/16 11:30 Ur Oxycodone Screen NEGATIVE (NEGATIVE) 11/07/16 11:30 Urine Methadone Screen NEGATIVE (NEGATIVE) 11/07/16 11:30 Ur Propoxyphene Screen NEGATIVE (NEGATIVE) 11/07/16 11:30 Ur Barbiturates Screen NEGATIVE (NEGATIVE) 11/07/16 11:30 Ur Tricyclics Screen NEGATIVE (NEGATIVE) 11/07/16 11:30 Ur Phencyclidine Scrn NEGATIVE (NEGATIVE) 11/07/16 11:30 Ur Amphetamine Screen NEGATIVE (NEGATIVE) 11/07/16 11:30 U Methamphetamines Scrn NEGATIVE (NEGATIVE) 11/07/16 11:30 U Benzodiazepines Scrn NEGATIVE (NEGATIVE) 11/07/16 11:30 Urine Cocaine Screen NEGATIVE (NEGATIVE) 11/07/16 11:30 U Cannabinoids Screen NEGATIVE (NEGATIVE) 11/07/16 11:30 Ethyl Alcohol < 5.0 mg/dL 11/07/16 09:55
[2016-11-12 05:48] LABS: BASOPHILS # (AUTO) 0.1 10^3/uL (0.0-0.1); BASOPHILS % (AUTO) 1.5 %; EOSINOPHILS # (AUTO) 0.1 10^3/uL (0.0-0.7); EOSINOPHILS % (AUTO) 2.2 %; HCT - HEMATOCRIT 37.1 % (42.0-52.0); HGB - HEMOGLOBIN 12.7 g/dL (14.0-18.0); LYMPHOCYTES # (AUTO) 1.9 10^3/uL (1.5-3.5); LYMPHOCYTES % (AUTO) 34.6 %; MEAN CORPUSCULAR HEMOGLOBIN 33.6 pg (27.0-31.0); MEAN CORPUSCULAR HGB CONC 34.3 g/dL (32.0-36.0); MEAN CORPUSCULAR VOLUME 98.1 fL (80.0-94.0); MEAN PLATELET VOLUME 8.5 fL (7.4-11.4); MONOCYTES # (AUTO) 0.7 10^3/uL (0.0-1.0); MONOCYTES % (AUTO) 11.9 %; NEUTROPHILS # (AUTO) 2.8 10^3/uL (1.5-6.6); NEUTROPHILS % (AUTO) 49.8 %; NUCLEATED RED BLOOD CELLS AUTO 0.1 /100WBC; RED BLOOD COUNT 3.78 10^6/uL (4.70-6.10); RED CELL DISTRIBUTION WIDTH 13.9 % (12.0-15.0); UNCORRECTED WHITE BLOOD COUNT 5.5 x10^3/uL; WHITE BLOOD COUNT 5.5 x10^3/uL (4.8-10.8)
[2016-11-12 05:54] LABS: ALBUMIN/GLOBULIN RATIO 1.3 (1.0-2.2); BILIRUBIN,TOTAL 0.5 mg/dL (0.2-1.0); CALCIUM 9.1 mg/dL (8.5-10.3); CREATININE 0.6 mg/dL (0.6-1.2); MAGNESIUM 1.8 mg/dL (1.7-2.8); POTASSIUM 3.6 mmol/L (3.5-5.0); TOTAL PROTEIN 6.2 g/dL (6.7-8.2)
[2016-11-12] MEDS: SODIUM CHLORIDE FLUSH 0.9% 10 ML SYRINGE IVP SCH ×3 (06:14→21:49)
[2016-11-12] MEDS: PRENATAL VITAMIN TABLET PO SCH (08:52)
[2016-11-12] MEDS: NICOTINE 14 MG PATCH TOP SCH (08:52)
[2016-11-12] MEDS: HEPARIN 5,000 UNIT/ML VIAL SUBQ SCH ×2 (08:53→21:24)
[2016-11-12] MEDS: NYSTATIN 500000 UNITS/5 ML UDC PO SCH ×4 (08:53→21:30)
[2016-11-12] MEDS: THIAMINE 100 MG TABLET PO SCH (08:53)
[2016-11-12] MEDS ORDERED: BENZOCAINE/MENTHOL LOZENGE MM PRN (16:33)
[2016-11-13] MEDS: SODIUM CHLORIDE FLUSH 0.9% 10 ML SYRINGE IVP SCH ×3 (05:25→21:52)
[2016-11-13 06:13] LABS: BASOPHILS # (AUTO) 0.2 10^3/uL (0.0-0.1); BASOPHILS % (AUTO) 3.1 %; EOSINOPHILS # (AUTO) 0.2 10^3/uL (0.0-0.7); EOSINOPHILS % (AUTO) 2.4 %; HCT - HEMATOCRIT 36.4 % (42.0-52.0); HGB - HEMOGLOBIN 12.6 g/dL (14.0-18.0); LYMPHOCYTES # (AUTO) 2.2 10^3/uL (1.5-3.5); MEAN CORPUSCULAR HGB CONC 34.6 g/dL (32.0-36.0); MEAN CORPUSCULAR VOLUME 98.2 fL (80.0-94.0); MEAN PLATELET VOLUME 8.6 fL (7.4-11.4); MONOCYTES # (AUTO) 0.7 10^3/uL (0.0-1.0); MONOCYTES % (AUTO) 10.7 %; NEUTROPHILS # (AUTO) 3.4 10^3/uL (1.5-6.6); NEUTROPHILS % (AUTO) 50.8 %; NUCLEATED RED BLOOD CELLS AUTO 0.1 /100WBC; RED BLOOD COUNT 3.71 10^6/uL (4.70-6.10); RED CELL DISTRIBUTION WIDTH 13.7 % (12.0-15.0); UNCORRECTED WHITE BLOOD COUNT 6.6 x10^3/uL; WHITE BLOOD COUNT 6.6 x10^3/uL (4.8-10.8)
[2016-11-13 06:25] LABS: ALBUMIN/GLOBULIN RATIO 1.2 (1.0-2.2); BILIRUBIN,TOTAL 0.6 mg/dL (0.2-1.0); CREATININE 0.6 mg/dL (0.6-1.2); MAGNESIUM 1.7 mg/dL (1.7-2.8); POTASSIUM 3.5 mmol/L (3.5-5.0); TOTAL PROTEIN 6.2 g/dL (6.7-8.2)
[2016-11-13] MEDS: THIAMINE 100 MG TABLET PO SCH (09:02)
[2016-11-13] MEDS: NICOTINE 14 MG PATCH TOP SCH (09:02)
[2016-11-13] MEDS: PRENATAL VITAMIN TABLET PO SCH (09:02)
[2016-11-13] MEDS: NYSTATIN 500000 UNITS/5 ML UDC PO SCH ×4 (09:02→21:52)
[2016-11-13] MEDS: HEPARIN 5,000 UNIT/ML VIAL SUBQ SCH ×2 (09:03→21:52)
--- NOTE | 2016-11-13 15:15 | PROVIDER PROGRESS NOTE ---
Subjective - Prog Note Date Prog Note Date: 11/12/16 Prog Note Time: 11:00 - Subjective Pt reports feeling: Improved (late entry 5-14 1500 He says he feels better.. He is still slow at times more so with responses when he does not hear well) Objective - Vital Signs/Intake & Output Reviewed Vital Signs: Yes Vital Signs: Vital Signs x48h Temp Pulse Resp BP Pulse Ox 11/13/16 08:41 36.8 C 77 14 139/76 H 95 Intake & Output: Intake & Output 11/10/16 11/11/16 11/12/16 11/13/16 23:59 23:59 23:59 23:59 Intake Total 3239 1199 700 920 Output Total 500 1350 400 300 Balance 2739 -151 300 620 - Objective General Appearance: positive: No acute distress, Alert Eyes Bilateral: positive: PERRL, EOMI ENT: positive: ENT inspection nml, Pharynx nml, No signs of dehydration Neck: positive: Thyroid nml, Trachea midline Respiratory: positive: Chest non-tender, No respiratory distress, Breath sounds nml Cardiovascular: positive: Regular rate & rhythm, No murmur Abdomen: positive: Non-tender, Nml bowel sounds Skin: positive: Color nml, Warm - Lab Results Fish Bones: 11/14/16 04:55 11/14/16 04:55 Other Labs: Lab Results x24hrs 11/13/16 11/13/16 Range/Units 05:37 05:37 WBC 6.6 (4.8-10.8) x10^3/uL RBC 3.71 L (4.70-6.10) 10^6/uL Hgb 12.6 L (14.0-18.0) g/dL Hct 36.4 L (42.0-52.0) % MCV 98.2 H (80.0-94.0) fL MCH 34.0 H (27.0-31.0) pg MCHC 34.6 (32.0-36.0) g/dL RDW 13.7 (12.0-15.0) % Plt Count 323 (130-450) 10^3/uL MPV 8.6 (7.4-11.4) fL Neut # 3.4 (1.5-6.6) 10^3/uL Lymph # 2.2 (1.5-3.5) 10^3/uL [place] # 0.7 (0.0-1.0) 10^3/uL Eos # 0.2 (0.0-0.7) 10^3/uL Baso # 0.2 H (0.0-0.1) 10^3/uL Absolute Nucleated RBC 0.00 x10^3/uL Nucleated RBCs 0.1 /100WBC Sodium 140 (135-145) mmol/L Potassium 3.5 (3.5-5.0) mmol/L Chloride 105 (101-111) mmol/L Carbon Dioxide 28 (21-32) mmol/L Anion Gap 7.0 (6-13) BUN 10 (6-20) mg/dL Creatinine 0.6 (0.6-1.2) mg/dL Estimated GFR (MDRD) 140 (>89) Glucose 97 (70-100) mg/dL Calcium 9.0 (8.5-10.3) mg/dL Magnesium 1.7 (1.7-2.8) mg/dL Total Bilirubin 0.6 (0.2-1.0) mg/dL AST 26 (10-42) IU/L ALT 22 (10-60) IU/L Alkaline Phosphatase 57 (42-121) IU/L Total Protein 6.2 L (6.7-8.2) g/dL Albumin 3.4 (3.2-5.5) g/dL Globulin 2.8 (2.1-4.2) g/dL Albumin/Globulin Ratio 1.2 (1.0-2.2) Assessment/Plan - Problem List (1) Alcohol withdrawal delirium, acute, mixed level of activity Impression: Sherman is improving slowly. He is thinking more clearly His responses are still slow. He is hard of hearing His balance and gait are quite impaired. PT is working with him. Will continue with prsent program and move to a Alcohol rehab placement.
[2016-11-14 05:29] LABS: BASOPHILS # (AUTO) 0.2 10^3/uL (0.0-0.1); BASOPHILS % (AUTO) 2.6 %; EOSINOPHILS # (AUTO) 0.2 10^3/uL (0.0-0.7); EOSINOPHILS % (AUTO) 3.1 %; HCT - HEMATOCRIT 38.1 % (42.0-52.0); HGB - HEMOGLOBIN 12.8 g/dL (14.0-18.0); LYMPHOCYTES # (AUTO) 2.3 10^3/uL (1.5-3.5); LYMPHOCYTES % (AUTO) 37.5 %; MEAN CORPUSCULAR HGB CONC 33.6 g/dL (32.0-36.0); MEAN CORPUSCULAR VOLUME 98.2 fL (80.0-94.0); MEAN PLATELET VOLUME 8.3 fL (7.4-11.4); MONOCYTES # (AUTO) 0.7 10^3/uL (0.0-1.0); MONOCYTES % (AUTO) 11.2 %; NEUTROPHILS # (AUTO) 2.8 10^3/uL (1.5-6.6); NEUTROPHILS % (AUTO) 45.6 %; RED BLOOD COUNT 3.88 10^6/uL (4.70-6.10); RED CELL DISTRIBUTION WIDTH 13.7 % (12.0-15.0); UNCORRECTED WHITE BLOOD COUNT 6.2 x10^3/uL; WHITE BLOOD COUNT 6.2 x10^3/uL (4.8-10.8)
[2016-11-14 05:44] LABS: ALBUMIN/GLOBULIN RATIO 1.3 (1.0-2.2); BILIRUBIN,TOTAL 0.3 mg/dL (0.2-1.0); CALCIUM 9.3 mg/dL (8.5-10.3); CREATININE 0.7 mg/dL (0.6-1.2); POTASSIUM 3.9 mmol/L (3.5-5.0); TOTAL PROTEIN 6.3 g/dL (6.7-8.2)
[2016-11-14] MEDS: SODIUM CHLORIDE FLUSH 0.9% 10 ML SYRINGE IVP SCH ×3 (08:08→21:03)
[2016-11-14] MEDS: HEPARIN 5,000 UNIT/ML VIAL SUBQ SCH ×2 (08:47→21:02)
[2016-11-14] MEDS: NICOTINE 14 MG PATCH TOP SCH (08:49)
[2016-11-14] MEDS: NYSTATIN 500000 UNITS/5 ML UDC PO SCH ×4 (08:50→21:03)
[2016-11-14] MEDS: THIAMINE 100 MG TABLET PO SCH (08:50)
[2016-11-14] MEDS: PRENATAL VITAMIN TABLET PO SCH (08:50)
[2016-11-14 11:09] LABS: BILIRUBIN,URINE NEGATIVE (NEGATIVE); PH,URINE 7.5 PH (5.0-7.5)
[2016-11-14 11:18] LABS: UA CHARGE (STRIP ONLY) YES; UR CULTURE IF IND NOT INDICATED
[2016-11-15] MEDS: SODIUM CHLORIDE FLUSH 0.9% 10 ML SYRINGE IVP SCH ×3 (06:28→21:33)
[2016-11-15] MEDS: NICOTINE 14 MG PATCH TOP SCH (08:46)
[2016-11-15] MEDS: THIAMINE 100 MG TABLET PO SCH (08:46)
[2016-11-15] MEDS: NYSTATIN 500000 UNITS/5 ML UDC PO SCH ×4 (08:46→21:16)
[2016-11-15] MEDS: PRENATAL VITAMIN TABLET PO SCH (08:46)
[2016-11-15] MEDS: POLYETHYLENE GLYCOL 3350 17 GM PACKET PO SCH (08:47)
[2016-11-15] MEDS: HEPARIN 5,000 UNIT/ML VIAL SUBQ SCH ×2 (08:49→21:17)
--- NOTE | 2016-11-15 12:12 | PROVIDER PROGRESS NOTE ---
Assessment/Plan - Problem List (1) Alcohol withdrawal Qualifiers: Complication of substance-induced condition: with unspecified complication Qualified Code(s): F10.239 - Alcohol dependence with withdrawal, unspecified Assessment/Plan: Patient appears stable now after several days in ICU on ativan drip Patient now on CIWA but scores are low Continue daily thiamine, MV and folic acid Patient still very weak and unsteady on his feet Patient also is processing very slowly and requires repeated cueing Patient needs SNF placement Social work working on SNF but without any success so far patient being considered by several facilities Patient awaiting placement Patient interested in alcohol rehab post SNF Ativan prn (2) Hypertension Assessment/Plan: No history of hypertension No home meds Patient could have been hypertensive while hospitalized secondary to alcohol withdrawal Patient on clonidine prn Will need follow up outpatient to see if he needs antihypertensives at home (3) Prophylactic use of unfractionated heparin for venous thromboembolism (VTE) Assessment/Plan: On subq heparin - Current Meds Current Meds: Current Medications Generic Name Dose Route Start Last Admin Trade Name Freq PRN Reason Stop Dose Admin Heparin Sodium (Porcine) 5,000 unit 11/07/16 21:00 11/15/16 08:49 SUBQ 5,000 unit BID JAVIER Administration Lorazepam 2 mg 11/07/16 17:36 11/10/16 23:31 Ativan Inj IVP 2 mg Q30M PRN Administration CIWA>8 Protocol Nicotine 1 patch 11/08/16 09:00 11/15/16 08:46 Nicoderm TOP 1 patch DAILY JAVIER Administration Nystatin 5 ml 11/10/16 12:00 11/15/16 08:46 Mycostatin PO 5 ml QID JAVIER Administration Polyethylene Glycol 17 gm 11/15/16 09:00 11/15/16 08:47 Miralax PO 17 gm DAILY JAVIER Administration Multivit/Folic Acid/Iron 1 tab 11/08/16 08:00 11/15/16 08:46 Trinatal Rx 1 PO 1 tab DAILYWM JAVIER Administration Sodium Chloride 10 ml 11/07/16 17:27 11/11/16 10:00 Normal Saline Flush 0.9% IVP 10 ml PRN PRN Administration NEEDED PER PROVIDER ORDERS Sodium Chloride 10 ml 11/07/16 22:00 11/15/16 06:28 Normal Saline Flush 0.9% IVP 10 ml Q8HR JAVIER Administration Thiamine HCl 100 mg 11/08/16 09:00 11/15/16 08:46 Vitamin B-1 PO 100 mg DAILY JAVIER Administration - Lab Result Lab results reviewed: Yes Fish Bone Diagrams: 11/14/16 04:55 11/14/16 04:55 - EKG Results EKG Interpreted Independently: Yes - Diagnostic Imaging Results Diagnostic Imaging Results: positive: Final report reviewed - Additional Planning Condition/Complexity: Stable My Orders: My Active Orders 11/15/16 09:00 Polyethylene Glycol 3350 [Miralax] 17 gm PO DAILY Consult/Specialty: OT, PT Plan Discussed with:: Patient Time Spent: 15-30 minutes Subjective - Subjective Patient Reports: Feeling Better (Patient feels well with no complaints. He is hard of hearing and is slow to process and answer questions. Denies any chest pain, shortness of breath or cough.) Nursing Reports: No Complaints Objective Vital Signs: Vital Signs - 24 hr 11/14/16 11/15/16 11/15/16 17:00 00:23 08:14 Temperature 36.3 C L 36.6 C 36.8 C Heart Rate [ 77 73 73 Brachial] Respiratory 12 18 19 Rate Blood Pressure 151/88 H 124/73 153/85 H [Left Brachial artery] O2 Saturation 98 95 94 Oxygen O2 Source Room air I&O (Last 24 Hrs): Intake and Output Totals x24h 11/13/16 11/14/16 11/15/16 23:59 23:59 23:59 Intake Total 1470 1450 360 Output Total 300 640 750 Balance 1170 810 -390 General: Alert, Cooperative, No acute distress HEENT: Atraumatic, PERRLA, EOMI, Mucous membr. moist/pink Neck: Supple, No JVD, No thyromegaly, +2 carotid pulse wo bruit, No LAD Lymphatic: no adenopathy Neuro: Alert, Non Focal, CN 2-12 Grossly Intact, Other (Slow to answer questions , appears to be slow to process. Unsteady gait) Cardiovascular: Regular rate, Normal S1, Normal S2, No murmurs Respiratory: Chest non-tender, No respiratory distress, Breath sounds nml Abdomen: Normal bowel sounds, Soft, No tenderness, No hepatospenomegaly Extremities: No clubbing, No cyanosis, No edema, Normal pulses, No tenderness/ swelling Skin: No rashes, No breakdown - Results Results: Laboratory Results WBC 6.2 x10^3/uL (4.8-10.8) 11/14/16 04:55 RBC 3.88 10^6/uL (4.70-6.10) L 11/14/16 04:55 Hgb 12.8 g/dL (14.0-18.0) L 11/14/16 04:55 Hct 38.1 % (42.0-52.0) L 11/14/16 04:55 MCV 98.2 fL (80.0-94.0) H 11/14/16 04:55 MCH 33.0 pg (27.0-31.0) H 11/14/16 04:55 MCHC 33.6 g/dL (32.0-36.0) 11/14/16 04:55 RDW 13.7 % (12.0-15.0) 11/14/16 04:55 Plt Count 350 10^3/uL (130-450) 11/14/16 04:55 MPV 8.3 fL (7.4-11.4) 11/14/16 04:55 Neut # 2.8 10^3/uL (1.5-6.6) 11/14/16 04:55 Lymph # 2.3 10^3/uL (1.5-3.5) 11/14/16 04:55 [place] # 0.7 10^3/uL (0.0-1.0) 11/14/16 04:55 Eos # 0.2 10^3/uL (0.0-0.7) 11/14/16 04:55 Baso # 0.2 10^3/uL (0.0-0.1) H 11/14/16 04:55 Absolute Nucleated RBC 0.00 x10^3/uL 11/14/16 04:55 Nucleated RBCs 0.0 /100WBC 11/14/16 04:55 PT 12.7 secs (9.9-12.6) H 11/08/16 04:45 INR 1.1 (0.8-1.2) 11/08/16 04:45 Sodium 141 mmol/L (135-145) 11/14/16 04:55 Potassium 3.9 mmol/L (3.5-5.0) 11/14/16 04:55 Chloride 105 mmol/L (101-111) 11/14/16 04:55 Carbon Dioxide 28 mmol/L (21-32) 11/14/16 04:55 Anion Gap 8.0 (6-13) 11/14/16 04:55 BUN 9 mg/dL (6-20) 11/14/16 04:55 Creatinine 0.7 mg/dL (0.6-1.2) 11/14/16 04:55 Estimated GFR (MDRD) 117 (>89) 11/14/16 04:55 Glucose 93 mg/dL (70-100) 11/14/16 04:55 Calcium 9.3 mg/dL (8.5-10.3) 11/14/16 04:55 Phosphorus 3.8 mg/dL (2.5-4.6) 11/11/16 04:53 Magnesium 1.7 mg/dL (1.7-2.8) 11/13/16 05:37 Total Bilirubin 0.3 mg/dL (0.2-1.0) 11/14/16 04:55 AST 31 IU/L (10-42) 11/14/16 04:55 ALT 27 IU/L (10-60) 11/14/16 04:55 Alkaline Phosphatase 60 IU/L (42-121) 11/14/16 04:55 Total Protein 6.3 g/dL (6.7-8.2) L 11/14/16 04:55 Albumin 3.5 g/dL (3.2-5.5) 11/14/16 04:55 Globulin 2.8 g/dL (2.1-4.2) 11/14/16 04:55 Albumin/Globulin Ratio 1.3 (1.0-2.2) 11/14/16 04:55 Lipase 45 U/L (22-51) 11/07/16 09:55 Urine Color DARK YELLOW 11/14/16 09:45 Urine Clarity CLEAR (CLEAR) 11/14/16 09:45 Urine pH 7.5 PH (5.0-7.5) 11/14/16 09:45 Ur Specific [place] 1.010 (1.002-1.030) 11/14/16 09:45 Urine Protein NEGATIVE mg/dL (NEGATIVE) 11/14/16 09:45 Urine Glucose (UA) NEGATIVE mg/dL (NEGATIVE) 11/14/16 09:45 Urine Ketones TRACE mg/dL (NEGATIVE) 11/14/16 09:45 Urine Occult Blood NEGATIVE (NEGATIVE) 11/14/16 09:45 Urine Nitrite NEGATIVE (NEGATIVE) 11/14/16 09:45 Urine Bilirubin NEGATIVE (NEGATIVE) 11/14/16 09:45 Urine Urobilinogen 0.2 (NORMAL) E.U./dL (NORMAL) 11/14/16 09:45 Ur Leukocyte Esterase NEGATIVE (NEGATIVE) 11/14/16 09:45 Ur Microscopic Review NOT INDICATED 11/14/16 09:45 Urine Culture Comments NOT INDICATED 11/14/16 09:45 Urine Opiates Screen NEGATIVE (NEGATIVE) 11/07/16 11:30 Ur Oxycodone Screen NEGATIVE (NEGATIVE) 11/07/16 11:30 Urine Methadone Screen NEGATIVE (NEGATIVE) 11/07/16 11:30 Ur Propoxyphene Screen NEGATIVE (NEGATIVE) 11/07/16 11:30 Ur Barbiturates Screen NEGATIVE (NEGATIVE) 11/07/16 11:30 Ur Tricyclics Screen NEGATIVE (NEGATIVE) 11/07/16 11:30 Ur Phencyclidine Scrn NEGATIVE (NEGATIVE) 11/07/16 11:30 Ur Amphetamine Screen NEGATIVE (NEGATIVE) 11/07/16 11:30 U Methamphetamines Scrn NEGATIVE (NEGATIVE) 11/07/16 11:30 U Benzodiazepines Scrn NEGATIVE (NEGATIVE) 11/07/16 11:30 Urine Cocaine Screen NEGATIVE (NEGATIVE) 11/07/16 11:30 U Cannabinoids Screen NEGATIVE (NEGATIVE) 11/07/16 11:30 Ethyl Alcohol < 5.0 mg/dL 11/07/16 09:55
[2016-11-16] MEDS: SODIUM CHLORIDE FLUSH 0.9% 10 ML SYRINGE IVP SCH ×3 (06:38→20:58)
[2016-11-16] MEDS: NICOTINE 14 MG PATCH TOP SCH (08:45)
[2016-11-16] MEDS: NYSTATIN 500000 UNITS/5 ML UDC PO SCH ×4 (08:45→20:58)
[2016-11-16] MEDS: HEPARIN 5,000 UNIT/ML VIAL SUBQ SCH ×2 (08:46→20:58)
[2016-11-16] MEDS: THIAMINE 100 MG TABLET PO SCH (08:46)
[2016-11-16] MEDS: PRENATAL VITAMIN TABLET PO SCH (08:46)
[2016-11-16] MEDS: POLYETHYLENE GLYCOL 3350 17 GM PACKET PO SCH (11:25)
--- NOTE | 2016-11-16 17:39 | PROVIDER PROGRESS NOTE ---
Assessment/Plan - Problem List (1) Alcohol withdrawal Qualifiers: Complication of substance-induced condition: with unspecified complication Qualified Code(s): F10.239 - Alcohol dependence with withdrawal, unspecified Assessment/Plan: Patient appears stable now after several days in ICU on ativan drip Discontinue CIWA as patient not stable low to negative scores Continue daily thiamine, MV and folic acid Patient still very weak and unsteady on his feet but improving Processing is improving and better able to follow cues Patient needs SNF placement Social work working on SNF but without any success so far patient being considered by several facilities Patient awaiting placement Patient interested in alcohol rehab post SNF Ativan prn (2) Hypertension Assessment/Plan: No history of hypertension No home meds Patient could have been hypertensive while hospitalized secondary to alcohol withdrawal Patient on clonidine prn Will need follow up outpatient to see if he needs antihypertensives at home BP stable (3) Prophylactic use of unfractionated heparin for venous thromboembolism (VTE) Assessment/Plan: On subq heparin - Current Meds Current Meds: Current Medications Generic Name Dose Route Start Last Admin Trade Name Freq PRN Reason Stop Dose Admin Heparin Sodium (Porcine) 5,000 unit 11/07/16 21:00 11/16/16 08:46 SUBQ 5,000 unit BID JAVIER Administration Lorazepam 2 mg 11/07/16 17:36 11/10/16 23:31 Ativan Inj IVP 2 mg Q30M PRN Administration CIWA>8 Protocol Nicotine 1 patch 11/08/16 09:00 11/16/16 08:45 Nicoderm TOP 1 patch DAILY JAVIER Administration Nystatin 5 ml 11/10/16 12:00 11/16/16 15:55 Mycostatin PO Not Given QID JAVIER Polyethylene Glycol 17 gm 11/15/16 09:00 11/16/16 11:25 Miralax PO Not Given DAILY JAVIER Multivit/Folic Acid/Iron 1 tab 11/08/16 08:00 11/16/16 08:46 Trinatal Rx 1 PO 1 tab DAILYWM JAVIER Administration Sodium Chloride 10 ml 11/07/16 17:27 11/11/16 10:00 Normal Saline Flush 0.9% IVP 10 ml PRN PRN Administration NEEDED PER PROVIDER ORDERS Sodium Chloride 10 ml 11/07/16 22:00 11/16/16 15:55 Normal Saline Flush 0.9% IVP Not Given Q8HR JAVIER Thiamine HCl 100 mg 11/08/16 09:00 11/16/16 08:46 Vitamin B-1 PO 100 mg DAILY JAVIER Administration - Lab Result Lab results reviewed: Yes Fish Bone Diagrams: 11/14/16 04:55 11/14/16 04:55 - EKG Results EKG Interpreted Independently: Yes - Diagnostic Imaging Results Diagnostic Imaging Results: positive: Final report reviewed - Additional Planning Condition/Complexity: Improved Consult/Specialty: PT Plan Discussed with:: Patient Time Spent: 15-30 minutes Subjective - Subjective Patient Reports: Feeling Better (Patient feeling well today. He is progressing well with walker. Denies any chest pain, shortness of breath, abdominal pain.) Nursing Reports: No Complaints Objective Vital Signs: Vital Signs - 24 hr 11/16/16 11/16/16 00:36 09:33 Temperature 36.8 C 36.7 C Heart Rate [ 81 80 Brachial] Respiratory 16 16 Rate Blood Pressure 145/78 H 126/79 [Left Brachial artery] O2 Saturation 96 94 Oxygen O2 Source Room air I&O (Last 24 Hrs): Intake and Output Totals x24h 11/14/16 11/15/16 11/16/16 23:59 23:59 23:59 Intake Total 1450 1730 1250 Output Total 090 055 9540 Balance 810 980 225 General: Alert, Oriented x3, Cooperative, No acute distress HEENT: Atraumatic, PERRLA, EOMI, Mucous membr. moist/pink Neck: Supple, No JVD, No thyromegaly, +2 carotid pulse wo bruit, No LAD Lymphatic: no adenopathy Neuro: Alert, Non Focal, CN 2-12 Grossly Intact, Oriented Times 3 Cardiovascular: Regular rate, Normal S1, Normal S2, No murmurs Respiratory: Chest non-tender, No respiratory distress, Breath sounds nml Abdomen: Normal bowel sounds, Soft, No tenderness, No hepatospenomegaly, No masses Extremities: No clubbing, No cyanosis, No edema, Normal pulses, No tenderness/ swelling Skin: No rashes, No breakdown, No significant lesion - Results Results: Laboratory Results WBC 6.2 x10^3/uL (4.8-10.8) 11/14/16 04:55 RBC 3.88 10^6/uL (4.70-6.10) L 11/14/16 04:55 Hgb 12.8 g/dL (14.0-18.0) L 11/14/16 04:55 Hct 38.1 % (42.0-52.0) L 11/14/16 04:55 MCV 98.2 fL (80.0-94.0) H 11/14/16 04:55 MCH 33.0 pg (27.0-31.0) H 11/14/16 04:55 MCHC 33.6 g/dL (32.0-36.0) 11/14/16 04:55 RDW 13.7 % (12.0-15.0) 11/14/16 04:55 Plt Count 350 10^3/uL (130-450) 11/14/16 04:55 MPV 8.3 fL (7.4-11.4) 11/14/16 04:55 Neut # 2.8 10^3/uL (1.5-6.6) 11/14/16 04:55 Lymph # 2.3 10^3/uL (1.5-3.5) 11/14/16 04:55 [place] # 0.7 10^3/uL (0.0-1.0) 11/14/16 04:55 Eos # 0.2 10^3/uL (0.0-0.7) 11/14/16 04:55 Baso # 0.2 10^3/uL (0.0-0.1) H 11/14/16 04:55 Absolute Nucleated RBC 0.00 x10^3/uL 11/14/16 04:55 Nucleated RBCs 0.0 /100WBC 11/14/16 04:55 PT 12.7 secs (9.9-12.6) H 11/08/16 04:45 INR 1.1 (0.8-1.2) 11/08/16 04:45 Sodium 141 mmol/L (135-145) 11/14/16 04:55 Potassium 3.9 mmol/L (3.5-5.0) 11/14/16 04:55 Chloride 105 mmol/L (101-111) 11/14/16 04:55 Carbon Dioxide 28 mmol/L (21-32) 11/14/16 04:55 Anion Gap 8.0 (6-13) 11/14/16 04:55 BUN 9 mg/dL (6-20) 11/14/16 04:55 Creatinine 0.7 mg/dL (0.6-1.2) 11/14/16 04:55 Estimated GFR (MDRD) 117 (>89) 11/14/16 04:55 Glucose 93 mg/dL (70-100) 11/14/16 04:55 Calcium 9.3 mg/dL (8.5-10.3) 11/14/16 04:55 Phosphorus 3.8 mg/dL (2.5-4.6) 11/11/16 04:53 Magnesium 1.7 mg/dL (1.7-2.8) 11/13/16 05:37 Total Bilirubin 0.3 mg/dL (0.2-1.0) 11/14/16 04:55 AST 31 IU/L (10-42) 11/14/16 04:55 ALT 27 IU/L (10-60) 11/14/16 04:55 Alkaline Phosphatase 60 IU/L (42-121) 11/14/16 04:55 Total Protein 6.3 g/dL (6.7-8.2) L 11/14/16 04:55 Albumin 3.5 g/dL (3.2-5.5) 11/14/16 04:55 Globulin 2.8 g/dL (2.1-4.2) 11/14/16 04:55 Albumin/Globulin Ratio 1.3 (1.0-2.2) 11/14/16 04:55 Lipase 45 U/L (22-51) 11/07/16 09:55 Urine Color DARK YELLOW 11/14/16 09:45 Urine Clarity CLEAR (CLEAR) 11/14/16 09:45 Urine pH 7.5 PH (5.0-7.5) 11/14/16 09:45 Ur Specific [place] 1.010 (1.002-1.030) 11/14/16 09:45 Urine Protein NEGATIVE mg/dL (NEGATIVE) 11/14/16 09:45 Urine Glucose (UA) NEGATIVE mg/dL (NEGATIVE) 11/14/16 09:45 Urine Ketones TRACE mg/dL (NEGATIVE) 11/14/16 09:45 Urine Occult Blood NEGATIVE (NEGATIVE) 11/14/16 09:45 Urine Nitrite NEGATIVE (NEGATIVE) 11/14/16 09:45 Urine Bilirubin NEGATIVE (NEGATIVE) 11/14/16 09:45 Urine Urobilinogen 0.2 (NORMAL) E.U./dL (NORMAL) 11/14/16 09:45 Ur Leukocyte Esterase NEGATIVE (NEGATIVE) 11/14/16 09:45 Ur Microscopic Review NOT INDICATED 11/14/16 09:45 Urine Culture Comments NOT INDICATED 11/14/16 09:45 Urine Opiates Screen NEGATIVE (NEGATIVE) 11/07/16 11:30 Ur Oxycodone Screen NEGATIVE (NEGATIVE) 11/07/16 11:30 Urine Methadone Screen NEGATIVE (NEGATIVE) 11/07/16 11:30 Ur Propoxyphene Screen NEGATIVE (NEGATIVE) 11/07/16 11:30 Ur Barbiturates Screen NEGATIVE (NEGATIVE) 11/07/16 11:30 Ur Tricyclics Screen NEGATIVE (NEGATIVE) 11/07/16 11:30 Ur Phencyclidine Scrn NEGATIVE (NEGATIVE) 11/07/16 11:30 Ur Amphetamine Screen NEGATIVE (NEGATIVE) 11/07/16 11:30 U Methamphetamines Scrn NEGATIVE (NEGATIVE) 11/07/16 11:30 U Benzodiazepines Scrn NEGATIVE (NEGATIVE) 11/07/16 11:30 Urine Cocaine Screen NEGATIVE (NEGATIVE) 11/07/16 11:30 U Cannabinoids Screen NEGATIVE (NEGATIVE) 11/07/16 11:30 Ethyl Alcohol < 5.0 mg/dL 11/07/16 09:55
[2016-11-17] MEDS: SODIUM CHLORIDE FLUSH 0.9% 10 ML SYRINGE IVP SCH ×3 (06:30→21:08)
[2016-11-17] MEDS: POLYETHYLENE GLYCOL 3350 17 GM PACKET PO SCH (08:21)
[2016-11-17] MEDS: THIAMINE 100 MG TABLET PO SCH (08:21)
[2016-11-17] MEDS: NICOTINE 14 MG PATCH TOP SCH (08:21)
[2016-11-17] MEDS: PRENATAL VITAMIN TABLET PO SCH (08:21)
[2016-11-17] MEDS: NYSTATIN 500000 UNITS/5 ML UDC PO SCH ×4 (08:21→21:08)
[2016-11-17] MEDS: HEPARIN 5,000 UNIT/ML VIAL SUBQ SCH ×2 (08:26→21:08)
--- NOTE | 2016-11-17 11:16 | PROVIDER PROGRESS NOTE ---
Assessment/Plan - Problem List (1) Alcohol withdrawal Qualifiers: Complication of substance-induced condition: with unspecified complication Qualified Code(s): F10.239 - Alcohol dependence with withdrawal, unspecified Assessment/Plan: Patient appears stable now after several days in ICU on ativan drip Discontinue CIWA as patient not stable low to negative scores Continue daily thiamine, MV and folic acid Patient is much improved today He is able to ambulate with little assistance and steady on his feet PT feel he is strong enough now that he no longer needs subacute rehab Patient would like to go the alcohol rehab and social work will try to set up a discharge directly to alcohol rehab for tomorrow Patient is also processing much better and follow all cues without any problems Ativan prn (2) Hypertension Assessment/Plan: No history of hypertension No home meds Patient could have been hypertensive while hospitalized secondary to alcohol withdrawal Patient on clonidine prn Will need follow up outpatient to see if he needs antihypertensives at home BP stable (3) Prophylactic use of unfractionated heparin for venous thromboembolism (VTE) Assessment/Plan: On subq heparin - Current Meds Current Meds: Current Medications Generic Name Dose Route Start Last Admin Trade Name Freq PRN Reason Stop Dose Admin Heparin Sodium (Porcine) 5,000 unit 11/07/16 21:00 11/17/16 08:26 SUBQ Not Given BID JAVIER Lorazepam 2 mg 11/07/16 17:36 11/10/16 23:31 Ativan Inj IVP 2 mg Q30M PRN Administration CIWA>8 Protocol Nicotine 1 patch 11/08/16 09:00 11/17/16 08:21 Nicoderm TOP 1 patch DAILY JAVIER Administration Nystatin 5 ml 11/10/16 12:00 11/17/16 08:21 Mycostatin PO 5 ml QID JAVIER Administration Polyethylene Glycol 17 gm 11/15/16 09:00 11/17/16 08:21 Miralax PO 17 gm DAILY JAVIER Administration Multivit/Folic Acid/Iron 1 tab 11/08/16 08:00 11/17/16 08:21 Trinatal Rx 1 PO 1 tab DAILYWM JAVIER Administration Sodium Chloride 10 ml 11/07/16 17:27 11/11/16 10:00 Normal Saline Flush 0.9% IVP 10 ml PRN PRN Administration NEEDED PER PROVIDER ORDERS Sodium Chloride 10 ml 11/07/16 22:00 11/17/16 06:30 Normal Saline Flush 0.9% IVP 10 ml Q8HR JAVIER Administration Thiamine HCl 100 mg 11/08/16 09:00 11/17/16 08:21 Vitamin B-1 PO 100 mg DAILY JAVIER Administration - Lab Result Lab results reviewed: Yes Fish Bone Diagrams: 11/14/16 04:55 11/14/16 04:55 - EKG Results EKG Interpreted Independently: Yes - Diagnostic Imaging Results Diagnostic Imaging Results: positive: Final report reviewed - Additional Planning Condition/Complexity: Stable Consult/Specialty: PT Plan Discussed with:: Patient, Spouse Subjective - Subjective Patient Reports: Feeling Better (Patient feels well. He was walking the halls. He is commited to quitting drinking. He denies any nausea, vomiting or chest pain.) Nursing Reports: No Complaints Objective Vital Signs: Vital Signs - 24 hr 11/16/16 11/16/16 11/17/16 17:10 23:35 07:53 Temperature 37.1 C 36.5 C 36.6 C Heart Rate [ 80 80 73 Brachial] Respiratory 16 16 14 Rate Blood Pressure 131/79 H 136/73 H [Left Brachial artery] Blood Pressure 130/66 [Right Brachial artery] O2 Saturation 97 96 98 Oxygen O2 Source Room air I&O (Last 24 Hrs): Intake and Output Totals x24h 11/15/16 11/16/16 11/17/16 23:59 23:59 23:59 Intake Total 1730 1790 750 Output Total 750 1025 Balance 980 765 750 General: Alert, Oriented x3, Cooperative, No acute distress HEENT: Atraumatic, PERRLA, EOMI, Mucous membr. moist/pink Neck: Supple, No JVD, No thyromegaly, +2 carotid pulse wo bruit, No LAD Lymphatic: no adenopathy Neuro: Alert, Non Focal, CN 2-12 Grossly Intact, Oriented Times 3 Cardiovascular: Regular rate, Normal S1, Normal S2, No murmurs Respiratory: Chest non-tender, No respiratory distress, Breath sounds nml Abdomen: Normal bowel sounds, Soft, No tenderness, No hepatospenomegaly Rectal: Non-Tender Extremities: No clubbing, No cyanosis, No edema, Normal pulses Skin: No rashes, No breakdown, No significant lesion - Results Results: Laboratory Results WBC 6.2 x10^3/uL (4.8-10.8) 11/14/16 04:55 RBC 3.88 10^6/uL (4.70-6.10) L 11/14/16 04:55 Hgb 12.8 g/dL (14.0-18.0) L 11/14/16 04:55 Hct 38.1 % (42.0-52.0) L 11/14/16 04:55 MCV 98.2 fL (80.0-94.0) H 11/14/16 04:55 MCH 33.0 pg (27.0-31.0) H 11/14/16 04:55 MCHC 33.6 g/dL (32.0-36.0) 11/14/16 04:55 RDW 13.7 % (12.0-15.0) 11/14/16 04:55 Plt Count 350 10^3/uL (130-450) 11/14/16 04:55 MPV 8.3 fL (7.4-11.4) 11/14/16 04:55 Neut # 2.8 10^3/uL (1.5-6.6) 11/14/16 04:55 Lymph # 2.3 10^3/uL (1.5-3.5) 11/14/16 04:55 [place] # 0.7 10^3/uL (0.0-1.0) 11/14/16 04:55 Eos # 0.2 10^3/uL (0.0-0.7) 11/14/16 04:55 Baso # 0.2 10^3/uL (0.0-0.1) H 11/14/16 04:55 Absolute Nucleated RBC 0.00 x10^3/uL 11/14/16 04:55 Nucleated RBCs 0.0 /100WBC 11/14/16 04:55 PT 12.7 secs (9.9-12.6) H 11/08/16 04:45 INR 1.1 (0.8-1.2) 11/08/16 04:45 Sodium 141 mmol/L (135-145) 11/14/16 04:55 Potassium 3.9 mmol/L (3.5-5.0) 11/14/16 04:55 Chloride 105 mmol/L (101-111) 05/15/17 04:55 Carbon Dioxide 28 mmol/L (21-32) 11/14/16 04:55 Anion Gap 8.0 (6-13) 11/14/16 04:55 BUN 9 mg/dL (6-20) 11/14/16 04:55 Creatinine 0.7 mg/dL (0.6-1.2) 11/14/16 04:55 Estimated GFR (MDRD) 117 (>89) 11/14/16 04:55 Glucose 93 mg/dL (70-100) 11/14/16 04:55 Calcium 9.3 mg/dL (8.5-10.3) 11/14/16 04:55 Phosphorus 3.8 mg/dL (2.5-4.6) 11/11/16 04:53 Magnesium 1.7 mg/dL (1.7-2.8) 11/13/16 05:37 Total Bilirubin 0.3 mg/dL (0.2-1.0) 11/14/16 04:55 AST 31 IU/L (10-42) 11/14/16 04:55 ALT 27 IU/L (10-60) 11/14/16 04:55 Alkaline Phosphatase 60 IU/L (42-121) 11/14/16 04:55 Total Protein 6.3 g/dL (6.7-8.2) L 11/14/16 04:55 Albumin 3.5 g/dL (3.2-5.5) 11/14/16 04:55 Globulin 2.8 g/dL (2.1-4.2) 11/14/16 04:55 Albumin/Globulin Ratio 1.3 (1.0-2.2) 11/14/16 04:55 Lipase 45 U/L (22-51) 11/07/16 09:55 Urine Color DARK YELLOW 11/14/16 09:45 Urine Clarity CLEAR (CLEAR) 11/14/16 09:45 Urine pH 7.5 PH (5.0-7.5) 11/14/16 09:45 Ur Specific [place] 1.010 (1.002-1.030) 11/14/16 09:45 Urine Protein NEGATIVE mg/dL (NEGATIVE) 11/14/16 09:45 Urine Glucose (UA) NEGATIVE mg/dL (NEGATIVE) 11/14/16 09:45 Urine Ketones TRACE mg/dL (NEGATIVE) 11/14/16 09:45 Urine Occult Blood NEGATIVE (NEGATIVE) 11/14/16 09:45 Urine Nitrite NEGATIVE (NEGATIVE) 11/14/16 09:45 Urine Bilirubin NEGATIVE (NEGATIVE) 11/14/16 09:45 Urine Urobilinogen 0.2 (NORMAL) E.U./dL (NORMAL) 11/14/16 09:45 Ur Leukocyte Esterase NEGATIVE (NEGATIVE) 11/14/16 09:45 Ur Microscopic Review NOT INDICATED 11/14/16 09:45 Urine Culture Comments NOT INDICATED 11/14/16 09:45 Urine Opiates Screen NEGATIVE (NEGATIVE) 11/07/16 11:30 Ur Oxycodone Screen NEGATIVE (NEGATIVE) 11/07/16 11:30 Urine Methadone Screen NEGATIVE (NEGATIVE) 11/07/16 11:30 Ur Propoxyphene Screen NEGATIVE (NEGATIVE) 11/07/16 11:30 Ur Barbiturates Screen NEGATIVE (NEGATIVE) 11/07/16 11:30 Ur Tricyclics Screen NEGATIVE (NEGATIVE) 11/07/16 11:30 Ur Phencyclidine Scrn NEGATIVE (NEGATIVE) 11/07/16 11:30 Ur Amphetamine Screen NEGATIVE (NEGATIVE) 11/07/16 11:30 U Methamphetamines Scrn NEGATIVE (NEGATIVE) 11/07/16 11:30 U Benzodiazepines Scrn NEGATIVE (NEGATIVE) 11/07/16 11:30 Urine Cocaine Screen NEGATIVE (NEGATIVE) 11/07/16 11:30 U Cannabinoids Screen NEGATIVE (NEGATIVE) 11/07/16 11:30 Ethyl Alcohol < 5.0 mg/dL 11/07/16 09:55
[2016-11-17 23:54] VITALS: BP 114/68
[2016-11-18] MEDS: SODIUM CHLORIDE FLUSH 0.9% 10 ML SYRINGE IVP SCH (05:33)
--- NOTE | 2016-11-18 07:19 | Discharge Plan ---
Discharge Plan Disposition: Home, Self Care Condition: Fair Prescriptions: Vitamin [Trinatal Rx 1] 1 tab PO DAILYWM #30 tablet Thiamine [Vitamin B-1] 100 mg PO DAILY #30 tablet Diet: Regular Activity Restrictions: Activity as Tolerated Shower Restrictions: No Driving Restrictions: No Weight Bearing: Full Weight Additional Instructions or Follow Up instructions: You presented to the hospital with alcohol withdrawal and were treated for a number of days in our ICU. You were very weak from your stay here and initially appeared as though you would need to go to a rehab for physical therapy but your strength has improved to the point where you can go home. The social media content specialist has set up for you to go to [facility] your intake is today at 1pm. 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 No Smoking: If you smoke, Please STOP! Call for help.
[2016-11-18] MEDS: THIAMINE 100 MG TABLET PO SCH (07:37)
[2016-11-18] MEDS: PRENATAL VITAMIN TABLET PO SCH (07:37)
[2016-11-18] MEDS: POLYETHYLENE GLYCOL 3350 17 GM PACKET PO SCH (07:37)
[2016-11-18] MEDS: NYSTATIN 500000 UNITS/5 ML UDC PO SCH (07:38)
[2016-11-18] MEDS: NICOTINE 14 MG PATCH TOP SCH (07:38)
[2016-11-18] MEDS: HEPARIN 5,000 UNIT/ML VIAL SUBQ SCH (07:38)
--- NOTE | 2016-11-18 19:03 | DISCHARGE SUMMARY ---
DATE OF ADMISSION: 11/07/2016 DATE OF DISCHARGE: 11/18/2016 DISCHARGING PHYSICIAN: Morris Roe MD. PRIMARY CARE PROVIDER: None. DISCHARGE DIAGNOSES: 1. Alcohol withdrawal. 2. Hypertension. 3. Prophylactic use of unfractionated heparin for venous thromboembolism. DISCHARGE MEDICATIONS: 1. Thiamine 100 mg p.o. daily. 2. vitamin 1 tablet p.o. daily. HOSPITAL COURSE: The patient is a 56-year-old gentleman with a past medical history of both alcohol a nd tobacco abuse since his 20s. The patient reported drinking a case of beer per day and had stopped over the week prior to presentation to the hospital. The patient's had asked the patient to cut down on his drinking as there was company coming to see them. He stopped drinking completely about 4 days prior to presenting to the hospital. He had fallen and struck his rib cage on a desk and fractur ed his seventh rib. He tried to take some old Vicodin, but had a bad reaction. The patient then tried ramp-wgg-hbycgpb ibuprofen and an typh-wzy-qkcnvny sleeping pill. He became very confused the next d ay and stopped those medications as well. Since then, the patient had become progressively more confu sed. He began hallucinating about people on a different plane who were trying to kill him, and also a bout dangerous people and animals in their yard. On evaluation in the emergency department, the jannette esquivel was in acute alcohol withdrawal. He was very agitated, delusional and attempt was made to transfer him to a psychiatric facility or an alcohol rehab facility; however, this attempt failed. The seda jeffries was admitted to the hospital in active delirium tremens. He was admitted to the ICU for close monit oring. He was very confused and actively pulling out lines and climbing out of the bed. Therefore, he had to be placed in restraints. In the ICU, he had to be placed on an Ativan drip. He remained in e ICU for several days and was requiring as much as 18 mg of IV Ativan per hour. The patient finally after several days in the ICU, was able to be weaned off the Ativan and initially was still quite con fused and slow to process, but eventually regained his processing and he seemed to clear up. The mansi peterson also had significant weakness from the long ICU stay and required Physical Therapy, who deemed in itially that the patient needed subacute rehabilitation. The patient was kept in the hospital as they could not find a rehab facility due to insurance issues. The patient became strong enough that he wa s well enough to discharge home; however, the patient then wanted to go into an inpatient alcohol judy ab program. This was set up for him at [facility] on 11/18/2016. The patient was discharge d earlier that morning for intake at 1 p.m. on 11/18/2016 at [facility]. The mansi ent seemed very committed to quitting drinking and had a very positive attitude. He was very thankful of all the care that was provided to him in the hospital, and he was in a very stable condition at t he time of discharge, having recovered from his alcohol withdrawal, having regained his strength and having regained clarity of his mind. The patient had very good cognition. He is still quite hard of h earing, but otherwise was doing very well at the time of discharge. The patient did not have any prio r medical problems and was only discharged on a multivitamin and thiamine. He was hypertensive during the hospitalization at many times, but this was felt likely to be due to his alcohol withdrawal. By the date of discharge, the patient's blood pressure was well controlled without any medications. He w as put on p.r.n. clonidine while he was hospitalized, but will need to followup with his PCP to see i f he needs any further blood pressure medications. PHYSICAL EXAMINATION ON DISCHARGE: VITAL SIGNS: Temperature 36.8, heart rate 71, blood pressure 114/68, respiratory rate 17, O2 saturati on 97% on room air. GENERAL: The patient does not appear to be in any acute distress. He is resting comfortably in the be d. He is alert and able to answer all my questions appropriately. He is hard of hearing. HEENT: Pupils are equal and reactive to light. Extraocular muscles are intact. Mucous membranes are m oist. There is no conjunctival pallor or scleral icterus noted. NECK: Supple. No thyromegaly. No JVD. Trachea is midline. LYMPH NODES: There is no cervical or axillary lymphadenopathy noted. CARDIOVASCULAR: S1, S2, regular rate and rhythm. No murmurs, rubs, or gallops. LUNGS: Clear to auscultation bilaterally. No wheezes, rhonchi, or crackles. ABDOMEN: Soft, nontender, nondistended. Bowel sounds are present in all 4 quadrants. EXTREMITIES: There is no lower extremity edema. Peripheral pulses are palpable. There is no cyanosis or clubbing. SKIN: No skin rash, lesions, cellulitis or abscesses. MUSCULOSKELETAL: The patient has good range of motion. No joint tenderness. No joint effusions. NEUROLOGIC: The patient is alert and oriented x3. Cranial nerves 2-12 grossly intact. Strength is katie ssly normal. Sensations are intact. LABORATORY: WBC is 6.2, hemoglobin 12.8, hematocrit 38.1, platelet count 350, INR 1.1. Sodium 141, po tassium 3.9, chloride 105, carbon dioxide 28, BUN 9, creatinine 0.7, glucose 193, calcium 9.3, phosph orus 3.8, magnesium 1.7, total bilirubin 0.3, AST 31, ALT 12, AST 27, alkaline phosphatase 60, total protein 6.3, albumin 3.5. Urine tox screen negative. Alcohol less than 5. IMAGING: CT head 11/07/2016, IMPRESSION: 1. Brain parenchyma within normal limits, no or mass or hemorrhage. 2. Left frontal and to a lesser degree left ethmoid and maxillary chronic sinusitis. FOLLOWUP/RECOMMENDATIONS: The patient is admitted for alcohol withdrawal. He had a long hospitalizati on including ICU stay, requiring IV Ativan drip, but now has been able to be weaned off of Ativan com pletely. No longer requiring CIWA checks. He is completely out of alcohol withdrawal. Initially was v vivek weak. He has recovered with physical therapy at the hospital and was well enough to be discharged home. The patient, however, preferred to be discharged to an inpatient alcohol rehab and he was disc harged to the alcohol rehab by private vehicle, his will take him there today. The patient will followup with his primary care physician once he has gone through rehabilitation. TIME SPENT ON DISCHARGE: Greater than 30 minutes were spent on discharge. JOB #: [id number] EXT JOB #:[id number]
== END 2016-11-18 08:24 | disposition other institution (70) | DRG 897 ==
LOC: EDUNIT# → ED 08:48 → ICU 17:27 → MS 11-11 20:20
PROVIDERS: ADMIT Internal Medicine; ATTEND Internal Medicine
DX: F10.231 Alcohol dependence with withdrawal delirium (principal); T51.0X1A Toxic effect of ethanol, accidental (unintentional), initial encounter; Y90.0 Blood alcohol level of less than 20 mg/100 ml; I10 Essential (primary) hypertension; E87.6 Hypokalemia; S22.39XD Fracture of one rib, unspecified side, subsequent encounter for fracture with routine healing; D53.9 Nutritional anemia, unspecified; F17.210 Nicotine dependence, cigarettes, uncomplicated; Z78.1 Physical restraint status; W18.30XD Fall on same level, unspecified, subsequent encounter
CPT/HCPCS: 36415; 70450; 80053; 80306; 80320; 81001; 81003; 83690; 83735; 84100; 85025; 85610; 87086; 87150; 96361; 96365; 96375; 96376; 99285

== ENCOUNTER 2020-05-22 22:04 | Emergency (ER) | payer OTHER ==
[2020-05-22 22:15] VITALS: BP 144/76
[2020-05-22 22:38] LABS: BASOPHILS # (AUTO) 0.1 10^3/uL (0.0-0.1); BASOPHILS % (AUTO) 0.4 %; EOSINOPHILS # (AUTO) 0.1 10^3/uL (0.0-0.7); EOSINOPHILS % (AUTO) 0.7 %; LYMPHOCYTES # (AUTO) 2.8 10^3/uL (1.5-3.5); LYMPHOCYTES % (AUTO) 20.6 %; MEAN CORPUSCULAR HEMOGLOBIN 33.3 pg (27.0-31.0); MEAN CORPUSCULAR HGB CONC 34.8 g/dL (32.0-36.0); MEAN CORPUSCULAR VOLUME 95.6 fL (80.0-94.0); MEAN PLATELET VOLUME 9.9 fL (7.4-11.4); MONOCYTES # (AUTO) 1.2 10^3/uL (0.0-1.0); MONOCYTES % (AUTO) 8.4 %; NEUTROPHILS # (AUTO) 9.5 10^3/uL (1.5-6.6); NEUTROPHILS % (AUTO) 69.6 %; PLT - PLATELET COUNT 253 10^3/uL (130-450); RED BLOOD COUNT 4.51 10^6/uL (4.70-6.10); RED CELL DISTRIBUTION WIDTH 14.6 % (12.0-15.0); WHITE BLOOD COUNT 13.6 x10^3/uL (4.8-10.8)
[2020-05-22 22:41] LABS: BILIRUBIN,URINE NEGATIVE (NEGATIVE); GLUCOSE, URINE (UA) NEGATIVE (NEGATIVE); KETONES,URINE (UA) NEGATIVE (NEGATIVE); LEUKOCYTE ESTERASE, URINE NEGATIVE (NEGATIVE); NITRITE,URINE NEGATIVE (NEGATIVE); OCCULT BLOOD,URINE NEGATIVE (NEGATIVE); PH,URINE 6.5 PH (5.0-7.5); PROTEIN,URINE NEGATIVE (NEGATIVE); UROBILINOGEN,URINE 0.2 (NORMAL) E.U./dL (NORMAL)
[2020-05-22 22:42] LABS: CLARITY,URINE CLEAR (CLEAR)
[2020-05-22 22:51] LABS: ALBUMIN 4.7 g/dL (3.2-5.5); ALBUMIN/GLOBULIN RATIO 1.5 (1.0-2.2); BILIRUBIN,TOTAL 0.7 mg/dL (0.2-1.0); CALCIUM 9.4 mg/dL (8.5-10.3); CREATININE 0.7 mg/dL (0.6-1.2); TOTAL PROTEIN 7.9 g/dL (6.7-8.2)
[2020-05-22] MEDS ORDERED: LACTATED RINGERS 1,000 ML IV ONE (22:57)
[2020-05-22] MEDS ORDERED: IOVERSOL 320 100 ML VIAL IVP ONE (23:12)
[2020-05-23] MEDS ORDERED: LIDOCAINE 2% URO-JET 5 ML SYRINGE UR ONE (00:26)
--- NOTE | 2020-05-23 01:31 | CT Report ---
PROCEDURE: Abdomen/Pelvis W INDICATIONS: RLQ pain CONTRAST: IV CONTRAST: Optiray 320 ml: 100 PO CONTRAST: *NO PO CONTRAST TECHNIQUE: After the administration of contrast, 5 mm thick sections acquired from the diaphragms to the sym physis. 5 mm thick coronal and sagittal reformats were acquired. For radiation dose reduction, the following was used: automated exposure control, adjustment of mA and/or kV according to patient size . COMPARISON: None. FINDINGS: Image quality: Excellent. ABDOMEN: Lung bases: Lung bases are clear. Heart size is normal. Solid organs: Liver and spleen are normal in size and enhancement. The gallbladder has multiple ston es. Biliary system is non dilated. Pancreas enhances normally. No adrenal nodules. Kidneys demonst rate normal size and enhancement, without hydronephrosis. Peritoneum and bowel: Bowel loops demonstrate normal wall thickness and caliber. No free fluid or a ir. Nodes and vessels: No retroperitoneal or mesenteric adenopathy by size criteria. The aorta has diffu se atherosclerotic disease without aneurysmal dilatation with likely severe stenosis in the left comm on iliac artery.. Miscellaneous: No ventral hernias. PELVIS: Genitourinary: The bladder is severely distended. Miscellaneous: No inguinal hernias or adenopathy. Bones: No suspicious bony lesions. No vertebral body compression fractures. IMPRESSION: 1. Severely distended bladder. 2. Cholelithiasis without evidence of cholecystitis. 3. There is a 3.1 x 2.6 cm hyperdensity in the right tensor of the fascia winston. This hyperdensity is either calcifications within the muscle or an enhancing mass. CT of the pelvis without contrast is re quired to differentiate. 4. The aorta has atherosclerotic calcifications which are severe at the iliac bifurcation. Severe guido nosis in the left common iliac artery is likely. Findings of the possible mass in the right fascial winston was discussed with Dr. Joseph. Reviewed by: Omar Edmond on 05/23/2020 1:30 AM PST Approved by: Omar Edmond on 05/23/2020 1:30 AM PST Station ID: [id number]
[2020-05-23] MEDS ORDERED: IOVERSOL 320 100 ML VIAL IVP ONE (05:01)
--- NOTE | 2020-05-23 06:53 | ED Physician Documentation ---
PD HPI ABD PAIN - Stated complaint Stated Complaint: ABD PX - Chief complaint Chief Complaint: Abd Pain - History obtained from History obtained from: Patient - Additional information Additional information: 60-year-old man presents with right lower quadrant abdominal pain, intermittent for 2 weeks associated with dysuria. aching, moderate severity, gradual onset, worse with pressing on the abdomen. Denies hematuria, nausea vomiting or diarrhea or back pain, fever or chills. He states he does have a history of prostate enlargement and is worried he has a urinary tract infection. Review of Systems Ten Systems: 10 systems reviewed and negative Constitutional: denies: Fever, Chills GI: reports: Abdominal Pain. denies: Nausea : reports: Dysuria. denies: Frequency, Hematuria PD PAST MEDICAL HISTORY - Past Medical History Past Medical History: Yes Cardiovascular: Hypertension Respiratory: None Endocrine/Autoimmune: None GI: None : None HEENT: Chronic vision loss, Chronic hearing loss Psych: None Musculoskeletal: None Derm: None Other Past Medical History: Alcoholism - Past Surgical History Past Surgical History: Yes Ortho: Other - Present Medications Home Medications: Ambulatory Orders Medication Instructions Recorded Confirmed Vitamin [Trinatal Rx 1] 1 tab PO DAILYWM #30 tablet 11/18/16 Thiamine [Vitamin B-1] 100 mg PO DAILY #30 tablet 11/18/16 - Allergies Allergies/Adverse Reactions: Allergies Allergy/AdvReac Type Severity Reaction Status Date / Time cat dander Allergy Itching Verified 05/22/20 22:15 Penicillins Allergy Rash Verified 05/22/20 22:15 - Social History Does the pt smoke?: Yes Smoking Status: Current every day smoker Does the pt drink ETOH?: Yes Does the pt have substance abuse?: No - Immunizations Immunizations are current?: Yes - POLST Patient has POLST: No PD ED PE NORMAL - Vitals Vital signs reviewed: Yes - General General: Alert and oriented X 3 - HEENT HEENT: Atraumatic, PERRL, EOMI - Neck Neck: Supple, no meningeal sign - Cardiac Cardiac: RRR - Respiratory Respiratory: No respiratory distress, Clear bilaterally - Abdomen Abdomen: Other (suprapubic tender to palpation. otherwise ntnd) - Male Male : Pictures Editor present (Male RN kerwin. normal external male genitalia. BL normal testicular lie) - Rectal Rectal: Deferred - Back Back: No CVA TTP - Derm Derm: Normal color - Extremities Extremities: No deformity - Neuro Neuro: Alert and oriented X 3 - Psych Psych: Normal mood, Normal affect Results - Vitals Vitals: Vital Signs - 24 hr 05/22/20 05/22/20 22:11 22:58 Temperature 36.2 C L 37.0 C Heart Rate 90 Respiratory 18 Rate Blood Pressure 144/76 H O2 Saturation 98 Oxygen O2 Source Room air - Labs Labs: Laboratory Tests 05/22/20 05/22/20 05/22/20 22:30 22:30 22:30 WBC 13.6 H RBC 4.51 L Hgb 15.0 Hct 43.1 MCV 95.6 H MCH 33.3 H MCHC 34.8 RDW 14.6 Plt Count 253 MPV 9.9 Neut # (Auto) 9.5 H Lymph # (Auto) 2.8 Story # (Auto) 1.2 H Eos # (Auto) 0.1 Baso # (Auto) 0.1 Absolute Nucleated RBC 0.00 Nucleated RBC % 0.0 Sodium 135 Potassium 3.6 Chloride 98 L Carbon Dioxide 23 Anion Gap 14.0 H BUN 11 Creatinine 0.7 Estimated GFR (MDRD) 115 Glucose 132 H Calcium 9.4 Total Bilirubin 0.7 AST 21 ALT 19 Alkaline Phosphatase 62 Total Protein 7.9 Albumin 4.7 Globulin 3.2 Albumin/Globulin Ratio 1.5 Lipase 33 Urine Color YELLOW Urine Clarity CLEAR Urine pH 6.5 Ur Specific [place] 1.015 Urine Protein NEGATIVE Urine Glucose (UA) NEGATIVE Urine Ketones NEGATIVE Urine Occult Blood NEGATIVE Urine Nitrite NEGATIVE Urine Bilirubin NEGATIVE Urine Urobilinogen 0.2 (NORMAL) Ur Leukocyte Esterase NEGATIVE Ur Microscopic Review NOT INDICATED Urine Culture Comments NOT INDICATED PD MEDICAL DECISION MAKING - ED course Complexity details: reviewed results, re-evaluated patient, d/w patient ED course: 60-year-old man presented with dysuria and suprapubic pain, found to be in urinary retention on CT. Torres placed via coud catheter with successful return of over 1000 cc of urine with immediate relief of symptoms. Patient will follow up with outpatient urology.Strict return precautions given Departure - Departure Disposition: 01 Home, Self Care Discharge Date/Time: 05/23/20 01:32
== END 2020-05-23 01:32 | disposition home or self-care (01) ==
LOC: ED 22:04
DX: R33.9 Retention of urine, unspecified (principal); N32.89 Other specified disorders of bladder; R10.31 Right lower quadrant pain; R30.0 Dysuria; K80.20 Calculus of gallbladder without cholecystitis without obstruction; I10 Essential (primary) hypertension; F17.200 Nicotine dependence, unspecified, uncomplicated
CPT/HCPCS: 36415; 51702; 74177; 80053; 81003; 83690; 85025; 96360; 99284; J7120; Q9967; 81001; 87086

== ENCOUNTER 2021-12-27 21:20 | Emergency (ER) | payer OTHER ==
--- NOTE | 2021-12-27 23:19 | ED Physician Documentation ---
History of Present Illness - Stated complaint Stated Complaint: MALE - Chief complaint Chief Complaint: General - History obtained from History obtained from: Patient - Additonal information Additional information: Patient is a 61-year-old male with a history of an enlarged prostate presenting for evaluation of blood in urine noted in Torres catheter. Patient went to his urologist in [place] today and had a Torres placed this afternoon around 130. He reports it was due to having difficulty urinating for the last several weeks.He states he is scheduled to see his urologist again in early January. This evening he noticed that the urine appeared red which concerned him. He does not take a blood thinner. He denies any abdominal discomfort. He has not noted any clots in the bag. He denies fever, chest pain or difficulty breathing. Review of Systems Constitutional: denies: Fever Nose: denies: Congestion Cardiac: denies: Chest pain / pressure Respiratory: denies: Dyspnea, Cough GI: denies: Abdominal Pain, Vomiting : reports: Unable to Void, Hematuria. denies: Dysuria Skin: denies: Rash Musculoskeletal: denies: Back pain Neurologic: denies: Headache PD PAST MEDICAL HISTORY - Past Medical History Past Medical History: Yes Cardiovascular: Hypertension Respiratory: None Endocrine/Autoimmune: None GI: None : None HEENT: Chronic vision loss, Chronic hearing loss Psych: None Musculoskeletal: None Derm: None - Past Surgical History Past Surgical History: Yes Ortho: Other - Present Medications Home Medications: Ambulatory Orders Medication Instructions Recorded Confirmed Vitamin [Trinatal Rx 1] 1 tab PO DAILYWM #30 tablet 11/18/16 Thiamine [Vitamin B-1] 100 mg PO DAILY #30 tablet 11/18/16 - Allergies Allergies/Adverse Reactions: Allergies Allergy/AdvReac Type Severity Reaction Status Date / Time cat dander Allergy Itching Verified 12/27/21 21:39 Penicillins Allergy Rash Verified 12/27/21 21:39 - Social History Does the pt smoke?: Yes Smoking Status: Current every day smoker Does the pt drink ETOH?: Yes Does the pt have substance abuse?: No - Immunizations Immunizations are current?: Yes - POLST Patient has POLST: No PD ED PE NORMAL - General General: Alert and oriented X 3, No acute distress, Well developed/nourished - HEENT HEENT: Atraumatic - Neck Neck: Supple, no meningeal sign - Cardiac Cardiac: RRR, No murmur, Strong equal pulses - Respiratory Respiratory: No respiratory distress, Clear bilaterally - Abdomen Abdomen: Normal bowel sounds, Soft, Non tender, Other (Torres catheter in place, red Deshaun-Aid appearing urine in Torres bag, Faint pink-tinged urine in Torres tubing) - Derm Derm: Warm and dry - Extremities Extremities: No edema - Neuro Neuro: Normal speech - Psych Psych: Normal mood Results - Vitals Vitals: Vital Signs - 24 hr 12/27/21 12/27/21 21:36 23:27 Temperature 36.2 C L 36.4 C L Heart Rate 95 89 Respiratory 18 18 Rate Blood Pressure 157/82 H 148/70 H O2 Saturation 95 96 Oxygen O2 Source Room air PD MEDICAL DECISION MAKING - ED course Complexity details: re-evaluated patient ED course: Patient presenting for evaluation of hematuria in the setting of recent Torres placement. No pain or tenderness. Vital signs are stable. Urine in catheter bag is Red Deshaun-Aid in color but after emptying it, new urine appears to be more pink-tinged. Appears that the bleeding Is resolving. There are no clots. Patient fully continues to be draining. At this time we will leave in place and have patient continue to follow-up with urology. He is aware of strict return precautions for Any change in appearance to the urine in his leg bag or other symptoms. He does not have any symptoms to suggest infection at this time. Departure - Departure Disposition: 01 Home, Self Care Clinical Impression: Hematuria Qualifiers: Hematuria type: unspecified type Qualified Code(s): R31.9 - Hematuria, uns pecified Condition: Stable Instructions: ED Catheter Care Torres, ED Hematuria Comments: You were evaluated for blood in your Torres catheter. Fortunately it appears that the blood is resolving on its own without any specific treatment. The blood may be present from the trauma of having the Torres inserted earlier today. Please continue to stay hydrated with plenty of fluid. Please follow-up with your urologist as scheduled. Please return to your urologist immediately or to the emergency department if you have worsening Bleeding, abdominal pain, clots in the Torres bag, fever or have any other concerns. Discharge Date/Time: 12/27/21 23:27
[2021-12-27 23:28] VITALS: BP 148/70
== END 2021-12-27 23:27 | disposition home or self-care (01) ==
LOC: ED 21:20
DX: R31.0 Gross hematuria (principal); F17.200 Nicotine dependence, unspecified, uncomplicated
CPT/HCPCS: 99281; 99282

== ENCOUNTER 2022-01-11 06:38 | Outpatient (CLI) | payer OTHER ==
--- NOTE | 2022-01-11 11:05 | Ultrasound Report ---
PROCEDURE: Retroperitoneal INDICATIONS: URINARY RETENTION TECHNIQUE: Real-time scanning was performed of the retroperitoneal organs, with image documentation. COMPARISON: CT abdomen pelvis 05/22/2020. FINDINGS: Kidneys: Kidneys are normal in size. Right kidney measures 12.1 cm long; left kidney measures 10.4 cm long. Right renal cortical thickness is 1.9 cm; left renal cortical thickness is 1.5 cm. No charlotte d masses, hydronephrosis, or nephrolithiasis. A 1.8 cm renal sinus cyst is present at the upper kidn ey and a simple appearing 2.9 cm cortical cyst is present at the upper kidney. No imaging follow-up i s necessary for this finding per consensus recommendations based on imaging criteria. Bladder: A Torres catheter is present in the bladder. The catheter was clamped one hour prior to the e xam with bladder volume of 274 mL at the time of the study. The Torres catheter was unclamped, with ur inary bladder volume decreasing to nearly empty. On pre-void images, both ureteral jets are noted wi th color Doppler interrogation. (Of note, ureteral jets may not be detectable in up to 25% of cases due to insufficient differences in specific gravity between ureteral and bladder urine). The bladder wall appears thickened and trabeculated. Miscellaneous: No free abdominal fluid. Approximate prostate gland dimensions of 3.7 x 3.2 x 3.4 cm, volume 21 cc. IMPRESSION: 1. No hydronephrosis. 2. The wall of the urinary bladder appears thickened, which could be artifactual related to underdist ention or could indicate a cystitis. Correlation with urinalysis may be helpful. Reviewed by: Edgardo Singh MD on 01/11/2022 11:04 AM PDT Approved by: Edgardo Singh MD on 01/11/2022 11:04 AM PDT Station ID: [id number]
== END 2022-01-11 06:39 | disposition home or self-care (01) ==
LOC: DI 06:38
PROVIDERS: ATTEND Urology
DX: R33.9 Retention of urine, unspecified (principal)